=== PATIENT | female | born 2000 | race Caucasian/White ===

== ENCOUNTER → 2022-03-18 08:01 | Outpatient (CLI) | payer BC, SELFPAY ==
--- NOTE | ~2022-03-18 | US_ITS ---
EXAMINATION: US thyroid DATE: 03/18/2022 08:26 INDICATION: Nontoxic goiter. TECHNIQUE: Multiple ultrasound images of the thyroid were obtained. COMPARISON: None. FINDINGS: The right thyroid lobe measures 4.5 x 1.3 x 1.6 cm. The left thyroid lobe measures 4.6 x 1.0 x 1.6 c m. The thyroid demonstrates heterogeneous hypoechogenicity and increased vascularity. In the left th yroid lobe, there is a 7 mm solid, hypoechoic, [id number]-menk nodule with ill-defined margin without echogenic foci (TI-RADS TR4). IMPRESSION: 1. Heterogeneous, hypervascular thyroid, consistent with chronic lymphocytic (Santos) thyroiditis. 2. Small thyroid nodule, likely not clinically significant. No follow-up is needed. Reviewed, dictated and finalized at location A. IMPRESSION: 1. Heterogeneous, hypervascular thyroid, consistent with chronic lymphocytic (H ashimoto) thyroiditis. 2. Small thyroid nodule, likely not clinically significant. No follow-up is nee ded.
== END ==
PROVIDERS: PCP Family Medicine; Visit Provider Nurse Practitioner
DX: E04.9 Nontoxic goiter, unspecified (principal)
CPT/HCPCS: 76536

== ENCOUNTER 2022-04-08 14:13 | Outpatient (CLI) | payer BC, SELFPAY ==
--- NOTE | ~2022-04-08 | NM_ITS ---
EXAMINATION: NM thyroid scan w uptake DATE: 04/09/2022 15:13 INDICATION: Hyperthyroidism. Thyroid toxicosis without thyrotoxic crisis. COMPARISON: Thyroid ultrasound 03/18/2022 TECHNIQUE: 0.326 mCi I-123 was administered orally. Scintigraphic images of the thyroid gland were o btained at 24 hours. Thyroid uptake was calculated by the technologist. FINDINGS: The thyroid uptake is 33% (normal 10-30%), with the right lobe measuring 16% uptake and the left 18%. There is no focal area of decreased or increased activity to suggest hypofunctioning or hyperfunctio jevon nodule. IMPRESSION: 1. Mildly increased 24-hour iodine uptake, consistent with hyperthyroidism. Reviewed, dictated and finalized at location A.
== END 2022-04-08 14:14 | disposition home or self-care (01) ==
PROVIDERS: PCP Family Medicine; Visit Provider Nurse Practitioner
DX: E05.90 Thyrotoxicosis, unspecified without thyrotoxic crisis or storm (principal)
CPT/HCPCS: 78014; A9516

== ENCOUNTER 2022-11-10 00:18 | Day surgery (SDC) | payer BC, SELFPAY ==
[2022-10-06 10:03] VITALS: BMI 31.3
[2022-11-10 09:17] VITALS: BP 126/77; PULSE 117; RESP 16; TEMP 36.6; O2SAT 98
[2022-11-10] MEDS: LACTATED RINGERS 1,000 ML 150 ML IV CONT (09:19)
--- NOTE | 2022-11-10 09:27 | WPDANESEPPF ---
Anes - Initial Pre Proc Eval Procedure: Operation Date: 11/10/22 10:30 Proposed Procedures p Esophagogastroduodenoscopy & Colonoscopy - Anshu Linton MD Date/Time: 11/10/22 09:27 Surgeon: Anshu Linton MD Pre Op Diagnosis: diarrhea, globus phenomenon Patient Data Age: 22 Gender: F Height: 1.7 m Weight: 89.2 kg Last Vital Signs Temp 36.6 C 11/10/22 09:17 Pulse 117 H 11/10/22 09:17 Resp 16 11/10/22 09:17 BP 126/77 11/10/22 09:17 Pulse Ox 98 11/10/22 09:17 O2 Del Method Room Air 11/10/22 09:17 Allergies Allergy/AdvReac Type Severity Reaction Status Date / Time No Known Allergies Allergy Verified 11/10/22 09:15 Home Medications Medication Instructions Recorded Confirmed Type cholecalciferol (vitamin D3) 250 250 mcg PO DAILY 09/24/22 11/10/22 History mcg (10,000 unit) capsule cholestyramine (with sugar) 4 gram 4 g PO DAILY #378 grams 09/24/22 11/10/22 Rx oral powder (Questran) methimazole 5 mg tablet 5 mg PO DAILY 09/24/22 11/10/22 History metoprolol succinate 25 mg capsule 25 mg PO DAILY 09/24/22 11/10/22 History sprinkle, ext. release 24 hr phentermine 37.5 mg capsule 37.5 mg PO DAILY 09/24/22 11/10/22 History rifaximin 550 mg tablet (Xifaxan) 550 mg PO TID 2 weeks #42 tabs 09/24/22 11/10/22 Rx citalopram 20 mg tablet (Celexa) 20 mg PO DAILY 11/01/22 11/10/22 History Patient hx anesthesia problems: none Family hx anesthesia problems: post op nausea/vomiting Results Review: All pre-operative results and documents have been reviewed as part of the pre-operative evaluation. [facility] Past Medical History Medical History Abdominal bloating Anxiety Diarrhea Hypertension Migraine Thyroid disorder Social History Social History Smoking status: Never smoker Drinks per week: 2 Substance use type: does not use Living arrangements: with family Spiritual care concerns: No Anes - Eval Final PreProcedure Day of Procedure 11/10/22 09:27 Patient weight: obese Heart: regular rate and rhythm Lungs: clear to auscultation Airway: Mallampati scale class II Neurological: alert and oriented Last oral intake: >/= 8 hours ASA classification: III Emergent: no Anesthetic plan: proceed Anesthesia type and monitoring: general GIVS and standard monitoring Results Review: All pre-operative results and documents have been reviewed as part of the pre-operative evaluation. Informed Consent: The patient's anesthetic plan and its attendant risks and benefits were discussed with the patient/family/POA. Questions were solicited and answers provided to the satisfaction of the patient/family/POA.
--- NOTE | 2022-11-10 09:50 | PM.HPGS ---
History of Present Illness History of Present Illness Consent: Risks, benefits, and alternatives have been discussed and questions answered. Patient agrees to proceed with procedure. Chief complaint: diarrhea, globus phenomenon Narrative: Aydee Blankenship is a 22 year old female with chronic diarrhea, bloating and also globus sensation, never had scopes Review of Systems Constitutional: Constitutional: Denies headache(s) and Denies weakness Eyes: Eyes: Denies blurry vision ENT: Reports Normal hearing present, Denies headache(s) and Denies neck pain Cardiovascular: Cardiovascular: Denies chest pain and Denies dyspnea Respiratory: Respiratory: Denies dyspnea Gastrointestinal: Gastrointestinal: Reports no additional gastrointestinal complaints Genitourinary: Genitourinary: Denies dysuria Musculoskeletal: Musculoskeletal: Denies neck pain Integumentary/Breasts: Skin/Breast: Denies dry skin Neurologic: Reports Normal hearing present, Denies headache(s) and Denies weakness Psychiatric: Psychiatric: Denies anxiety Endocrine: Endocrine: Denies change in body appearance Hematologic/Lymphatic: Hematologic/Lymphatic: Denies easy bleeding Allergic/Immunologic: Allergic/Immunologic: Denies urticaria PMFSH Past Medical History Medical History Abdominal bloating Anxiety Diarrhea Hypertension Migraine Thyroid disorder Social History Social History Smoking status: Never smoker Drinks per week: 2 Substance use type: does not use Living arrangements: with family Spiritual care concerns: No Meds Home Medications and Allergies Home Medications Medication Instructions Recorded Confirmed Type cholecalciferol (vitamin D3) 250 250 mcg PO DAILY 09/24/22 11/10/22 History mcg (10,000 unit) capsule cholestyramine (with sugar) 4 gram 4 g PO DAILY #378 grams 09/24/22 11/10/22 Rx oral powder (Questran) methimazole 5 mg tablet 5 mg PO DAILY 09/24/22 11/10/22 History metoprolol succinate 25 mg capsule 25 mg PO DAILY 09/24/22 11/10/22 History sprinkle, ext. release 24 hr phentermine 37.5 mg capsule 37.5 mg PO DAILY 09/24/22 11/10/22 History rifaximin 550 mg tablet (Xifaxan) 550 mg PO TID 2 weeks #42 tabs 09/24/22 11/10/22 Rx citalopram 20 mg tablet (Celexa) 20 mg PO DAILY 11/01/22 11/10/22 History Allergies Allergy/AdvReac Type Severity Reaction Status Date / Time No Known Allergies Allergy Verified 11/10/22 09:15 Vital Signs Vital Signs - 24 hr 11/10/22 09:17 Temperature 97.9 F Pulse Rate 117 H Respiratory Rate 16 Blood Pressure 126/77 Pulse Oximetry 98 Oxygen Delivery Room Air Exam Const: General: comfortable and no acute distress HENMT: Face/Nose/Sinus: Normal nares present Eyes: General: appearance normal, both eyes and all related structures Neck: Neck: no JVD Resp: Auscultation: clear to auscultation bilaterally Cardio: Rate: regular rate Rhythm: regular rhythm GI: Inspection: non-distended GI Palp: Yes Soft to palpation Skin: General skin exam: normal color Neuro: General: gait normal Speech: normal speech Extrem: General: normal to inspection Psych: Mental Status: mental status grossly normal Assessment and Plan Assessment and plan (1) Abdominal bloating: Code(s): R14.0 - Abdominal distension (gaseous) Status: Acute Assessment and Plan: egd with bx (2) Diarrhea: Code(s): R19.7 - Diarrhea, unspecified Status: Acute Assessment and Plan: colonoscopy with bx
[2022-11-10] MEDS: BENZOCAINE (*SP) 60 ML SPRAY CAN (HURRICAINE) 1 SPRAY MUCOUS MEM (09:55)
--- NOTE | 2022-11-10 10:08 | SUR.OPER ---
EGD ended at 957. Colonoscopy started at 1004.
[2022-11-10 10:15] VITALS: BP 116/73; PULSE 91; RESP 19; O2SAT 99
[2022-11-10 10:25] VITALS: BP 121/82; PULSE 80; RESP 17; O2SAT 100
[2022-11-10 10:35] VITALS: BP 127/85; PULSE 74; RESP 21; O2SAT 100
== END 2022-11-10 10:47 | disposition home or self-care (01) ==
PROVIDERS: PCP Family Medicine; Visit Provider Internal Medicine Gastroenterology
PROC: 0DJ08ZZ Inspection of Upper Intestinal Tract, Via Natural or Artificial Opening Endoscopic (ICD-10-PCS; CPT 43235; principal; 2022-11-10 10:30)
DX: R19.7 Diarrhea, unspecified (principal); K21.00 Gastro-esophageal reflux disease with esophagitis, without bleeding; I10 Essential (primary) hypertension; F41.9 Anxiety disorder, unspecified; E66.9 Obesity, unspecified; Z68.30 Body mass index [BMI] 30.0-30.9, adult
CPT/HCPCS: 45380; 43239; 88305; J2704; J7120

== ENCOUNTER 2023-11-25 10:57 | Outpatient (CLI) | payer BC, SELFPAY ==
--- NOTE | ~2023-11-25 | US_ITS ---
EXAMINATION: US thyroid DATE: 11/25/2023 11:37 INDICATION: Thyroid nodule TECHNIQUE: Multiple ultrasound images of the thyroid were obtained. COMPARISON: 03/18/2022 FINDINGS: The right thyroid lobe measures 4.9 x 1.3 x 1.6 cm. The left thyroid lobe measures 4.8 x 1.2 x 1.5 c m. There is heterogeneous echogenicity with coarsened echotexture throughout the thyroid. There is a 5 mm solid hypoechoic nodule with smooth margins and without echogenic foci (TI-RADS 4, moderately s uspicious , FNA if >=1.5 cm, annual followup is >=1 cm) in the deep left thyroid lobe. This appears s lightly decreased in size and with more well-defined margins and on the prior study. There is a secon d similar-appearing 5 mm nodule along the inferior margin of the left thyroid lobe but with thin plan e of increased echogenicity separate from the thyroid suggesting this could be extrathyroidal with di fferential including parathyroid adenoma. IMPRESSION: 1. Heterogeneous thyroid with coarsened echotexture which could be seen in the setting of Santos's thyroiditis. 2. Slight decrease in size of a now 5 mm left thyroid nodule which does not meet size criteria for ei ther biopsy or follow-up. 3. Second similar-appearing 5 mm nodule at the lower pole of the left thyroid, uncertain whether with in or peripheral to the thyroid and would also include parathyroid adenoma or normal small parathyroi d lymph node on the differential. Reviewed, dictated and finalized at location A. RITY SUPERVISOR IMPRESSION: 1. Heterogeneous thyroid with coarsened echotexture which could be seen in the setting of Santos's thyroiditis. 2. Slight decrease in size of a now 5 mm left thyroid nodule which does not jeana t size criteria for either biopsy or follow-up. 3. Second similar-appearing 5 mm nodule at the lower pole of the left thyroid, uncertain whether within or peripheral to the thyroid and would also include pa rathyroid adenoma or normal small parathyroid lymph node on the differential.
== END 2023-11-25 10:58 | disposition home or self-care (01) ==
LOC: ANHIMG 10:58
PROVIDERS: PCP Family Medicine; Visit Provider Internal Medicine
DX: E04.2 Nontoxic multinodular goiter (principal)
CPT/HCPCS: 76536

== ENCOUNTER 2024-12-25 21:07 | Emergency (ER) | payer BC, OTHER, SELFPAY ==
--- OUTSIDE RECORDS SUMMARY | 2024-12-25 21:09 | XMS_ITS | Clinical Summary ---
Author Organization [facility] Address [address] [place] [phone] Phone Care Team Providers Care Event Executive Name Role Phone Urmila Mckeon MD Primary Care Provider + Social History Tobacco Use Types Packs/Day Years Used Date Smoking Tobacco: Never Assessed Comments Unknown Sex and Gender Information Value Date Recorded Sex Assigned at Not on file Legal Sex Female 1:37 PM CDT Gender Identity Not on file Sexual Orientation Not on file Plan of Treatment Health Maintenance Due Date Last Done Comments HPV VACCINES (1 - 3-dose series) 2013 DTAP/TDAP/TD VACCINES (1 - Tdap) 2017 HEPATITIS B VACCINES (1 of 3 - 19+ 3-dose series) 2017 CERVICAL CANCER SCREENING 2019 INFLUENZA VACCINE (#1) 2024 PNEUMOCOCCAL VACCINE 0-64 YEARS Aged Out No longer eligible based on patient's age to complete this topic Care Teams Event Executive Relationship Specialty Start Date End Date Urmila Mckeon MD [address] [place] [phone] PCP - General Family Practice 09/01/22
[2024-12-25 21:13] VITALS: BP 129/74; PULSE 91; RESP 16; TEMP 36.6; O2SAT 101
[2024-12-25 23:31] VITALS: BP 138/77; PULSE 68; RESP 17; TEMP 36.8; O2SAT 100
--- OUTSIDE RECORDS SUMMARY | 2024-12-26 00:42 | XMS_ITS | Referral Summary ---
Author Organization [facility] Address [address] [place] [address] Care Team Providers Care Airline Transport Pilot Name Role Phone Noe Ornelas MD Primary Care Provider [phone] Encounters Date Type Department Care Team Description 11/16/2024 Telephone [facility] [address] [place] [phone] Roman Pily 11/15/2024 Orders Only [facility] [address] [place] [phone] Alok Corona MD Graves disease (Primary Dx) 11/15/2024 10:20 AM SENIOR ACCOUNTANT ANALYST Lab [facility] [address] [place] [address] [place] [address] Graves disease; Fatigue, unspecified type 11/15/2024 9:45 AM SENIOR ACCOUNTANT ANALYST Office Visit [facility] [address] [place] [phone] Alok Corona MD Graves disease (Primary Dx); Fatigue, unspecified type 10/29/2024 Telephone [facility] [address] [facility] [address] [facility] Room [address] (Third Floor) [place] [address] Leonor Wells, RN COVID-19 EVALUATION 10/26/2024 [facility] [address] [facility] [address] [facility] [place] [address] Noe Ornelas MD Lab Results (/) 10/24/2024 8:20 PM SENIOR ACCOUNTANT ANALYST Lab [facility] [address] [place] [address] Difficult or painful urination from Last 3 Months Allergies No known active allergies Medications citalopram (CeleXA) 20 mg tablet TAKE 1 TABLET BY MOUTH EVERY DAY 90 tablet 4 Active levothyroxine (SYNTHROID) 150 mcg tablet Take 1 tablet (150 mcg total) by mouth train director before breakfast 90 tablet 3 4 Active Active Problems Problem Noted Date Diagnosed Date Graves disease 05/16/2024 Assessment & Plan (11/15/2024 1:04 PM SENIOR ACCOUNTANT ANALYST): She is s/p REED nearly 3 months ago and feels fatigued. Methimazole was stopped 4 weeks ago. I suspect that she is now hypothyroid, which would be expected after radioactive iodine. Check TFT's today and start levothyroxine as indicated. We discussed that she should not get until at least 6 months after REED. We also discussed that thyroid eye disease can occur at any time, even after the Graves' has been treated. She has no signs of LUCIANO today. Assessment & Plan (07/16/2024 9:12 AM CDT): She has thyrotoxicosis due to Graves' disease given the elevated TSI levels and is symptomatic. We discussed treatments including medications, REED, and surgery. I think the best option for her would be REED given the frequent cessation and re- initiation of methimazole in the past and the fact that remission has not been sustained when off methimazole for any length of time. She would also like to become in the next year or so and methimazole cannot be used in the first trimester of . We will proceed with nuclear medicine consult for REED therapy. In the meantime, restart methimazole 5 mg daily given her symptoms; she will stop this 3 days prior to the scan. She denies being at this time but a POC test will be checked before REED. We discussed that we expect her to develop hypothyroidism after REED and she will likely need to begin thyroid hormone at some point. This can be safely taken in . She cannot get for six months following REED and she understands this. We also discussed that TSI antibodies would still have to be monitored during due to the risk of Graves' even s/p REED ablation. We will get baseline TFT's today before restarting treatment as above. Assessment & Plan (05/16/2024 10:34 AM CDT): By history. Will check old records. Check thyroid labs including TSI and TPO. May need referral to Endocrinology. Thyroid-binding globulin (TBG) abnormality 05/10 Assessment & Plan (05/10/2017 3:50 PM CDT): Repeat thyroid funtion If normal, no further studies would be needed Otherwise, advise to follow Immunizations Name Administration Dates Next Due DTaP, Unspecified 04/10/2003, 9,1998,10/21,1998 HPV, Quadrivalent 01/09/2013,09/08/2012,07/05/20 12 Hep A, Unspecified 02/27/2018,08/23/2017 Hep B, Unspecified 1998,1998, 998 HiB 10/08/1999, 9,1998,08/20 Influenza, Quadrivalent, Lorna l Culture-based MDCK, Preservative Free, Antibiotic Free, Intramuscular 09/05/2023 Influenza, Trivalent, IM (MDV) 08/25/2021 Influenza, Unspecified 08/23/2017 MMR 04/10/2003,07/10/1999 Meningococcal MCV4P (Menactra) 08/12/2015,2011 Polio, Unspecified 04/10/2003, 9,1998,08/20 Tdap 06/09/2009 Social History Tobacco Use Types Packs/Day Years Used Date Smoking Tobacco: Never Smokeless Tobacco: Never Tobacco Cessation:Counseling Given: No Alcohol Use Standard Drinks/Week Comments No 0 (1 standard drink = 0.6 oz pur e alcohol) Personal Safety Answer Date Recorded Have you ever been in or are you currently in a harmful physical or emotional relationship or is someone making you feel afraid or unsafe? Denies 08/23/2024 Comments No Sex and Gender Information Value Date Recorded Sex Assigned at Not on file Legal Sex Female 10:48 AM SENIOR ACCOUNTANT ANALYST Gender Identity Not on file Sexual Orientation Not on file Last Filed Vital Signs Vital Sign Reading Time Taken Comments Blood Pressure 113/79 11/15/2024 9:29 AM SENIOR ACCOUNTANT ANALYST Pulse 99 11/15/2024 9:29 AM SENIOR ACCOUNTANT ANALYST Temperature 36.6 ??C (97.9 ??F) 08/23/2024 6:25 PM CD T Respiratory Rate 16 08/23/2024 6:25 PM CDT Oxygen Saturation 98% 08/23/2024 6:25 PM CDT Inhaled Oxygen Concentration - - Weight 95.1 kg (209 lb 9.6 oz) 11/15/2024 9:29 A M SENIOR ACCOUNTANT ANALYST Height 167.6 cm (5' 6 ) 11/15/2024 9:29 AM SENIOR ACCOUNTANT ANALYST Body Mass Index 33.83 11/15/2024 9:29 AM SENIOR ACCOUNTANT ANALYST Plan of Treatment Not on file Procedures Procedure Name Priority Date/Time Associated Diagnosis Comments VITAMIN B12 Routine 11/15/2024 10:20 AM SENIOR ACCOUNTANT ANALYST Fatigue, unspecified type VITAMIN D 25 HYDROXY Routine 11/15/2024 10:20 AM SENIOR ACCOUNTANT ANALYST Fatigue, unspecified type FERRITIN Routine 11/15/2024 10:20 AM SENIOR ACCOUNTANT ANALYST Fatigue, unspecified type IRON PROFILE W/ IBC Routine 11/15/2024 1 0:20 AM SENIOR ACCOUNTANT ANALYST Fatigue, unspecified type T3, FREE Routine 11/15/2024 10:20 AM SENIOR ACCOUNTANT ANALYST Graves disease T4, FREE Routine 11/15/2024 10:20 AM SENIOR ACCOUNTANT ANALYST Graves disease TSH Routine 11/15/2024 10:20 AM SENIOR ACCOUNTANT ANALYST Graves disease URINALYSIS, MICROSCOPIC ONLY Routine 10/24/2024 3:57 PM SENIOR ACCOUNTANT ANALYST Difficult or painful urination URINALYSIS AND REFLEX TO MICROSCOPIC AND CULTURE Routine 10/24/2024 3:57 PM SENIOR ACCOUNTANT ANALYST Difficult or painful urination from Last 3 Months Results * Iron profile w/ IBC (11/15/2024 10:20 AM SENIOR ACCOUNTANT ANALYST) [facility] Iron 82 35 - 145 mcg/dL TIBC 305 250 - 400 mcg/dL [facility] Transferrin saturation 27 20 - 50 % [facility] Blood 11/15/2024 10:2 0 AM SENIOR ACCOUNTANT ANALYST 11/15/2024 10:43 AM SENIOR ACCOUNTANT ANALYST Alok Corona MD LAB BLOOD ORDERABLES Fi nal Result [facility] [place] [address] * (ABNORMAL) Vitamin D 25 hydroxy (11/15/2024 10:20 AM SENIOR ACCOUNTANT ANALYST) [facility] Vitamin D 25-OH 25(L) 30 - 80 ng/mL Blood 11/15/2024 10:2 0 AM SENIOR ACCOUNTANT ANALYST 11/15/2024 10:43 AM SENIOR ACCOUNTANT ANALYST Alok Corona MD LAB BLOOD ORDERABLES Fi nal Result [facility] [place] [address] * (ABNORMAL) T3, free (11/15/2024 10:20 AM SENIOR ACCOUNTANT ANALYST) [facility] Free T3 <0.4(L) 2.0 - 4.4 pg/mL Blood 11/15/2024 10:2 0 AM SENIOR ACCOUNTANT ANALYST 11/15/2024 10:43 AM SENIOR ACCOUNTANT ANALYST Alok Corona MD LAB BLOOD ORDERABLES Fi nal Result Performing Organization Address [facility] de Phone Number [facility] [place] [address] * (ABNORMAL) TSH (11/15/2024 10:20 AM SENIOR ACCOUNTANT ANALYST) Thyroid Stimulating Hormone 123.00(H) 0.30 - 4.20 mcIUnit/m L Blood 11/15/2024 10:2 0 AM SENIOR ACCOUNTANT ANALYST 11/15/2024 10:43 AM SENIOR ACCOUNTANT ANALYST Alok Corona MD LAB BLOOD ORDERABLES Fi nal Result Performing Organization Address [facility] de Phone Number [facility] [place] [address] * (ABNORMAL) T4, free (11/15/2024 10:20 AM SENIOR ACCOUNTANT ANALYST) Free T4 <0.10(L) 0.90 - 1.70 ng/dL Blood 11/15/2024 10:2 0 AM SENIOR ACCOUNTANT ANALYST 11/15/2024 10:43 AM SENIOR ACCOUNTANT ANALYST Alok Corona MD LAB BLOOD ORDERABLES Fi nal Result Performing Organization Address [facility] de Phone Number [facility] [place] [address] * Ferritin (11/15/2024 10:20 AM SENIOR ACCOUNTANT ANALYST) Ferritin 59 13 - 150 ng/mL Blood 11/15/2024 10:2 0 AM SENIOR ACCOUNTANT ANALYST 11/15/2024 10:43 AM SENIOR ACCOUNTANT ANALYST Alok Corona MD LAB BLOOD ORDERABLES Fi nal Result [facility] [place] [address] * Vitamin B12 (11/15/2024 10:20 AM SENIOR ACCOUNTANT ANALYST) Vitamin B12 637 230 - 1,250 pg/mL Blood 11/15/2024 10:2 0 AM SENIOR ACCOUNTANT ANALYST 11/15/2024 10:43 AM SENIOR ACCOUNTANT ANALYST us Alok Corona MD LAB BLOOD ORDERABLES Fi nal Result Performing Organization Address [facility] Co de Phone Number [facility] [place] [address] * (ABNORMAL) Urinalysis reflex to microscopic and culture Urine (10/24/2024 3:57 PM SENIOR ACCOUNTANT ANALYST) Color, ur Yellow Yellow Clarity, ur Clear Clear [facility] Specific gravity, ur 1.036(H) 1.003 - 1.030 [facility] pH, urine 7.0 [facility] Comment: Interpretive Data ? Urine pH is affected by diet, medications, systemic acid-base disturbances, and renal tubular function. ??pH may affect urinary stone formation. ??For example, urine pH below 6.0 may help reduce the tendency for calcium phosphate stones and pH greater than 6.0 may reduce the tendency for uric acid stone formation. Source: [facility] [place] Current Interpretive Data was last revised on 2017 Protein, ur ql 1+(A) Negative [facility] Glucose, ur ql Negative Negative [facility] Ketones, ur Negative Negative [facility] Bilirubin, ur Negative Negative [facility] Blood, ur Negative Negative [facility] Urobilinogen, ur <2.0 <2.0 mg/dL [facility] Nitrite, ur Negative Negative [facility] Leukocyte esterase, ur Negative Negative [facility] UA reflex comment Reflex to microscopic UA will be performed. [facility] Urine 10/24/2024 3:57 PM SENIOR ACCOUNTANT ANALYST 10/24/2024 4:00 PM SENIOR ACCOUNTANT ANALYST Noe Ornelas MD LAB MICROBIOLOGY - GENERAL OR DERABLES Final Result Performing Organization Address [facility]/ZIP Co de Phone Number [facility] [place] [address] * (ABNORMAL) Urinalysis, microscopic only (10/24/2024 3:57 PM SENIOR ACCOUNTANT ANALYST) WBC, ur 0-5 0 - 5 /HPF RBC, ur 3-5(A) 0 - 2 /HPF [facility] Epithelial cells, squamous, ur 1-5 0 - 5 /HPF [facility] Epithelial cells, renal, ur 1-5(A) 0 - 0 /HPF [facility] Epithelial cells, transitional, ur 1-5 0 - 0 /HPF [facility] Bacteria, ur Trace(A) [facility] Mucous, ur Present(A) [facility] Culture Reflex Comment Reflex conditions for urine culture (WBC >10) not met. [facility] Urine 10/24/2024 3:57 PM SENIOR ACCOUNTANT ANALYST 10/24/2024 4:00 PM SENIOR ACCOUNTANT ANALYST Noe Ornelas MD LAB URINE ORDERABLES Final Re sult Performing Organization Address [facility] Co de Phone Number ZENON SHEIKH [facility] [place] [address] from Last 3 Months Insurance [facility] CHOICE PLUS CIGNA CIGNA CIGNA Care Teams Airline Transport Pilot Relationship Specialty Start Date End Date Noe Ornelas MD [address] [address] PCP - General Internal Medicine 05/16/24
--- OUTSIDE RECORDS SUMMARY | 2024-12-26 00:42 | XMS_ITS | Clinical Summary ---
Author Organization [facility] Address [address] [place] [phone] Phone Care Team Providers Care Stationary Engineer Name Role Phone Urmila Mckeon MD Primary [...] age to complete this topic Care Teams Stationary Engineer Relationship Specialty Start Date End Date Urmila Mckeon MD [address] [place] [phone] PCP - General Family Practice 09/01/22
--- OUTSIDE RECORDS SUMMARY | 2024-12-26 00:42 | XMS_ITS | Clinical Summary ---
Author Organization [facility] [address] [facility] [place] Address [address] [place] [address] Care Team Providers Care Event Specialist Food Demonstrator Name Role Phone Noe Ornelas MD Primary Care Provider [phone] Allergies No known active allergies Medications citalopram (CeleXA) 20 mg tablet TAKE 1 TABLET BY MOUTH EVERY DAY 90 tablet 4 Active levothyroxine (SYNTHROID) 150 mcg tablet Take 1 tablet (150 mcg total) by mouth surgical technologist before breakfast 90 tablet 3 4 Active Active Problems Problem Noted Date Diagnosed Date Graves disease 05/16/2024 Assessment & Plan (11/15/2024 1:04 PM NURSE ADVISOR): She is s/p REED nearly 3 months [...] would be needed Otherwise, advise to follow Encounters Date Type Department Care Team Description 11/16/2024 Telephone [facility] [address] [place] [phone] Pily Owens 11/15/2024 10:20 AM NURSE ADVISOR Lab [facility] [address] [place] [address] Outpatient Health [place], [place] [id number] Graves disease; Fatigue, unspecified type 11/15/2024 9:45 AM NURSE ADVISOR Office Visit [facility] [address] [place] [address] Alok Corona MD Graves disease (Primary Dx); Fatigue, unspecified type 11/15/2024 Orders Only [facility] [address] [place] [address] [address] [place] [phone] Alok Corona MD Graves disease (Primary Dx) 10/29/2024 Telephone [facility]ly [facility] Room [address] (Third Floor) [place] [address] Leonor Wells, RN COVID-19 EVALUATION 10/26/2024 Telephone [facility] [address] [place] [address] [address] [place] [phone] Noe Ornelas MD Lab Results (/) 10/24/2024 8:20 PM NURSE ADVISOR Lab [facility] [address] [place], [place] [phone] Difficult or painful urination from Last 3 Months Immunizations Name Administration Dates Next Due DTaP, Unspecified 04/10/2003, 9,1998,10/21,1998 HPV, Quadrivalent 01/09/2013,09/08/2012,07/05/20 12 Hep A, Unspecified 02/27/2018,08/23/2017 Hep B, Unspecified 1998,1998, 998 HiB 10/08/1999, 9,1998,08/20 Influenza, Quadrivalent, Lorna l Culture-based MDCK, Preservative Free, Antibiotic Free, Intramuscular 09/05/2023 Influenza, Trivalent, IM (MDV) 08/25/2021 Influenza, Unspecified 08/23/2017 MMR 04/10/2003,07/10/1999 Meningococcal MCV4P (Menactra) 08/12/2015,2011 Polio, Unspecified 04/10/2003, 9,1998,08/20 Tdap 06/09/2009 Medical History Medical History Date Comments Hx Other Medical hypothyroid; Co mments: GFC 01/13/2017 - Depression Anxiety Thyroid disease Hypertension Inflammatory bowel disease Family History Medical History Relation Name Comments Thyroid disease Father Hypertension Maternal Grandfather Hyperte nsion; Hypertension Mother Obesity Mother Lung cancer Paternal Grandfather Cancer, lung; Cause of : Cancer, lung Relation Name Status Comments Father Maternal Grandfather Mother Paternal Grandfather Social History Tobacco Use Types Packs/Day Years [...] on file Legal Sex Female 10:48 AM NURSE ADVISOR Gender Identity Not on file Sexual Orientation Not on file Obstetrics History Last Filed Vital Signs Vital Sign Reading Time Taken Comments Blood Pressure 113/79 11/15/2024 9:29 AM NURSE ADVISOR Pulse 99 11/15/2024 9:29 AM NURSE ADVISOR Temperature 36.6 ??C (97.9 ??F) 08/23/2024 6:25 PM CD T Respiratory Rate 16 08/23/2024 6:25 PM CDT Oxygen Saturation 98% 08/23/2024 6:25 PM CDT Inhaled Oxygen Concentration - - Weight 95.1 kg (209 lb 9.6 oz) 11/15/2024 9:29 A M NURSE ADVISOR Height 167.6 cm (5' 6 ) 11/15/2024 9:29 AM NURSE ADVISOR Body Mass Index 33.83 11/15/2024 9:29 AM NURSE ADVISOR Plan of Treatment Health Maintenance Due Date Last Done Comments Cervical Cancer Screening 1998 Hepatitis C Screening 1998 Varicella Vaccines (1 of 2 - 13+ 2-dose series) 2011 Regular Well Visit/Exam 18-64 2016 Depression Screening 05/10/2018 05/10/2017 DTaP/Tdap/Td Vaccine (7 - Td or Tdap) 06/09/2019 06/09/2009, 04/10/2003, 10/08/1999, Additional history exists Covid-19 Vaccine ( season) 2024 02/05/2022, 12/26/2020, 12/05/2020 Influenza Vaccine (#1) 2024 3, 08/25/2021, 08/23/2017 HPV Vaccines Completed 01/09/2013, 08/21, 07/05/2012 Pneumococcal vaccine <65 Aged Out No longer eligible based on patient's age to complete this topic Procedures Procedure Name Priority Date/Time Associated Diagnosis Comments VITAMIN B12 Routine 11/15/2024 10:20 AM NURSE ADVISOR Fatigue, unspecified type VITAMIN D 25 HYDROXY Routine 11/15/2024 10:20 AM NURSE ADVISOR Fatigue, unspecified type FERRITIN Routine 11/15/2024 10:20 AM NURSE ADVISOR Fatigue, unspecified type IRON PROFILE W/ IBC Routine 11/15/2024 1 0:20 AM NURSE ADVISOR Fatigue, unspecified type T3, FREE Routine 11/15/2024 10:20 AM NURSE ADVISOR Graves disease T4, FREE Routine 11/15/2024 10:20 AM NURSE ADVISOR Graves disease TSH Routine 11/15/2024 10:20 AM NURSE ADVISOR Graves disease URINALYSIS, MICROSCOPIC ONLY Routine 10/24/2024 3:57 PM NURSE ADVISOR Difficult or painful urination URINALYSIS AND REFLEX TO MICROSCOPIC AND CULTURE Routine 10/24/2024 3:57 PM NURSE ADVISOR Difficult or painful urination from Last 3 Months Results * Iron profile w/ IBC (11/15/2024 10:20 AM NURSE ADVISOR) Iron 82 35 - 145 mcg/dL TIBC 305 250 - 400 mcg/dL [facility] Transferrin saturation 27 20 - 50 % [facility] Blood 11/15/2024 10:2 0 AM NURSE ADVISOR 11/15/2024 10:43 AM NURSE ADVISOR Alok Corona MD LAB BLOOD ORDERABLES Fi nal Result Performing Organization Address City/[facility] [place] [address] * (ABNORMAL) Vitamin D 25 hydroxy (11/15/2024 10:20 AM NURSE ADVISOR) Vitamin D 25-OH 25(L) 30 - 80 ng/mL Blood 11/15/2024 10:2 0 AM NURSE ADVISOR 11/15/2024 10:43 AM NURSE ADVISOR Alok Corona MD LAB BLOOD ORDERABLES Fi nal Result Performing Organization Address [facility] [place] [address] * (ABNORMAL) T3, free (11/15/2024 10:20 AM NURSE ADVISOR) Free T3 <0.4(L) 2.0 - 4.4 pg/mL Blood 11/15/2024 10:2 0 AM NURSE ADVISOR 11/15/2024 10:43 AM NURSE ADVISOR Alok Corona MD LAB BLOOD ORDERABLES Fi nal Result Performing Organization Address [facility] de Phone Number [facility] [place] [address] * (ABNORMAL) TSH (11/15/2024 10:20 AM NURSE ADVISOR) Thyroid Stimulating Hormone 123.00(H) 0.30 - 4.20 mcIUnit/m L Blood 11/15/2024 10:2 0 AM NURSE ADVISOR 11/15/2024 10:43 AM NURSE ADVISOR Alok Corona MD LAB BLOOD ORDERABLES Fi nal Result Performing Organization Address [facility] [place] [address] * (ABNORMAL) T4, free (11/15/2024 10:20 AM NURSE ADVISOR) Free T4 <0.10(L) 0.90 - 1.70 ng/dL Blood 11/15/2024 10:2 0 AM NURSE ADVISOR 11/15/2024 10:43 AM NURSE ADVISOR Alok Corona MD LAB BLOOD ORDERABLES Fi nal Result Performing Organization Address [facility] [place] [address] * Ferritin (11/15/2024 10:20 AM NURSE ADVISOR) Pathologist [facility] Ferritin 59 13 - 150 ng/mL Blood 11/15/2024 10:2 0 AM NURSE ADVISOR 11/15/2024 10:43 AM NURSE ADVISOR Alok Corona MD LAB BLOOD ORDERABLES Fi nal Result Performing Organization Address [facility] de Phone Number [facility] [place] [address] * Vitamin B12 (11/15/2024 10:20 AM NURSE ADVISOR) Vitamin B12 637 230 - 1,250 pg/mL Blood 11/15/2024 10:2 0 AM NURSE ADVISOR 11/15/2024 10:43 AM NURSE ADVISOR Alok Corona MD LAB BLOOD ORDERABLES Fi nal Result Performing Organization Address City/[facility] Co de Phone Number [facility] Department of Laboratories [place], [place] [phone] * (ABNORMAL) Urinalysis reflex to microscopic and culture Urine (10/24/2024 3:57 PM NURSE ADVISOR) Color, ur Yellow Yellow Clarity, ur Clear Clear [facility] Specific gravity, ur 1.036(H) 1.003 - 1.030 [facility] pH, urine 7.0 [facility] Comment: Interpretive Data ? Urine pH is affected by diet, medications, systemic acid-base disturbances, and renal tubular function. ??pH may affect urinary stone formation. ??For example, urine pH below 6.0 may help reduce the tendency for calcium phosphate stones and pH greater than 6.0 may reduce the tendency for uric acid stone formation. Source: [facility] Current Interpretive Data was last revised on 2017 Protein, ur ql 1+(A) Negative [facility] Glucose, ur ql Negative Negative [facility] Ketones, ur Negative Negative [facility] Bilirubin, ur Negative Negative [facility] Blood, ur Negative Negative [facility] Urobilinogen, ur <2.0 <2.0 mg/dL [facility] Nitrite, ur Negative Negative [facility] Leukocyte esterase, ur Negative Negative [facility] UA reflex comment Reflex to microscopic UA will be performed. [facility] Urine 10/24/2024 3:57 PM NURSE ADVISOR 10/24/2024 4:00 PM NURSE ADVISOR us Noe Ornelas MD LAB MICROBIOLOGY - GENERAL OR DERABLES Final Result [facility] [place] [address] * (ABNORMAL) Urinalysis, microscopic only (10/24/2024 3:57 PM NURSE ADVISOR) WBC, ur 0-5 0 - 5 /HPF RBC, ur 3-5(A) 0 - 2 /HPF [facility] Epithelial cells, squamous, ur 1-5 0 - 5 /HPF [facility] Epithelial cells, renal, ur 1-5(A) 0 - 0 /HPF [facility] Epithelial cells, transitional, ur 1-5 0 - 0 /HPF [facility] Bacteria, ur Trace(A) [facility] Mucous, ur Present(A) [facility] Culture Reflex Comment Reflex conditions for urine culture (WBC >10) not met. [facility] Urine 10/24/2024 3:57 PM NURSE ADVISOR 10/24/2024 4:00 PM NURSE ADVISOR us Noe Ornelas MD LAB URINE ORDERABLES Final Re sult [facility] [place] [address] from Last 3 Months Insurance [facility] CHOICE PLUS [employer] [facility] [employer] Address: [employer] [address] [place] [address] [facility] Care Teams Event Specialist Food Demonstrator Relationship Specialty Start Date End Date Noe Ornelas MD [address] [address] PCP - General Internal Medicine 05/16/24
--- NOTE | 2024-12-26 01:08 | ED.SKABFB ---
HPI - Skin/Abscess/Foreign Bdy General Chief complaint: Skin/Abscess/Foreign Body Stated complaint: CUT ON R INDEX FINGER Time Seen by Provider: 12/26/24 00:31 Source: patient Mode of arrival: ambulatory Limitations: no limitations History of Present Illness HPI narrative: Patient is a 24-year-old female who presents the ED with report of a laceration to her right 2nd digit. Patient reports she accidentally cut herself with a steak knife tonight. Sustained a superficial laceration to the radial edge of her distal right 2nd digit. Attempted to use [id number] skin glue at home but states with no states close. Prompted here for further evaluation. No numbness. Tetanus up-to-date. Related Data Home Medications ?Medication ?Instructions ?Recorded ?Confirmed ?Last Taken ?Type citalopram 20 mg tablet (Celexa) 20 mg PO DAILY 11/01/22 12/25/24 12/25/24 History Allergies Allergy/AdvReac Type Severity Reaction Status Date / Time No Known Allergies Allergy Verified 12/25/24 23:32 Review of Systems Review of Systems: All systems reviewed & are unremarkable except as noted in HPI. All systems reviewed & are unremarkable except as noted in HPI and below PMFSH Past Medical History Medical History GERD with esophagitis Irritable bowel syndrome with diarrhea Abdominal bloating Diarrhea Thyroid disorder Hypertension Migraine Anxiety Family History Family History Other No problems noted. Unknown Hypothyroidism Social History Social History Smoking status: Never smoker Drinks per week: 2 Substance use type: does not use Do You Feel Safe in your Home?: Yes Lack of Transportation: No Lack of Food: Never True Current Housing: I Have Housing Concerned About Future Housing: No Difficulty Paying Gas/Electric Bills: No Difficulty Paying for Meds: No Currently Unemployed: No Education: Associate Degree Difficulty w/ Childcare or Family Care: No Living arrangements: with family Spiritual care concerns: No Exam Narrative: GENERAL: Well appearing, well-nourished, non-toxic, in no acute distress. HEAD: Normocephalic, atraumatic. RESPIRATORY: Airway patent, respirations nonlabored. CARDIOVASCULAR: Regular rate and rhythm. MUSCULOSKELETAL: Moves all extremities. No gross deformities. 0.5cm linear superficial laceration to lateral edge of dip joint of R 2nd digit. Approximates well. No active bleeding. Sensation intact. Capillary refill intact. SKIN: Warm, dry, normal color. NEURO: A&O X3. Speech clear. PSYCHIATRIC: Appropriate mood and affect. Normal interaction. Course Vital Signs Vital signs: Vital Signs Temperature 97.9 F 12/25/24 21:13 Pulse Rate 91 12/25/24 21:13 Respiratory Rate 16 12/25/24 21:13 Blood Pressure 129/74 12/25/24 21:13 Pulse Oximetry 101 H 12/25/24 21:13 Oxygen Delivery Room Air 12/25/24 21:13 Temperature 98.3 F 12/25/24 23:31 Pulse Rate 68 12/25/24 23:31 Respiratory Rate 17 12/25/24 23:31 Blood Pressure 138/77 12/25/24 23:31 Pulse Oximetry 100 12/25/24 23:31 Oxygen Delivery Room Air 12/25/24 21:13 Procedures Laceration Laceration 1: Date: 12/26/24 Time: 01:00 Site: hand Side (If applicable): right (2nd digit) Size (cm): 0.5 Description: linear Depth: simple, single layer (superficial) Local Anesthetic: none Pre-repair: wound explored and irrigated ====== Skin Level ====== Skin layer closed with: dermabond ====== Subcutaneous Layer ====== ====== Muscle Layer ====== ====== Tendon Layer ====== MDM - Skin/Abscess/Foreign Bdy MDM Narrative Medical decision making narrative: Superficial laceration. Repaired with Dermabond. Tetanus up-to-date. Discharged home. Medical Records Attestation: I reviewed the patient's medical records. Discharge Plan Discharge Clinical Impression: Superficial laceration of finger Patient Disposition: Home, Self-Care Condition: Stable Instructions: Antibiotic Form, Finger Laceration (ED), Skin Adhesive Care (ED) Additional Instructions: Allow skin glue to fall off on its own. Utilize Tylenol/ibuprofen as needed for pain. Follow-up with your primary care doctor for further evaluation if needed. Patient Language: Tajik Prescriptions: No Action citalopram [Celexa] 20 mg Tablet 20 mg PO DAILY Follow-up/Referrals: Linda,Urmila Adler MD [Primary Care Provider] - Time of Disposition: 01:12
[2024-12-26] MEDS: ACETAMINOPHEN 500 MG TABLET 1000 MG PO (01:15)
== END 2024-12-26 01:18 | disposition home or self-care (01) ==
PROVIDERS: Emergency Provider Physician Assistant; PCP Family Medicine
DX: S61.210A Laceration without foreign body of right index finger without damage to nail, initial encounter (principal); K21.9 Gastro-esophageal reflux disease without esophagitis; I10 Essential (primary) hypertension; F41.9 Anxiety disorder, unspecified; W26.0XXA Contact with knife, initial encounter
CPT/HCPCS: 12001; 99282; A9270

== ENCOUNTER 2025-07-08 18:02 | Observation (INO) | payer OTHER, SELFPAY ==
[2025-07-08] VITALS (31 sets, daily range): BP systolic 111–130; BP diastolic 61–75; PULSE 71–104; O2SAT 99–100
--- OUTSIDE RECORDS SUMMARY | 2025-07-08 18:54 | XMS_ITS | Clinical Summary ---
Author Organization [facility] [address] [facility] [place] Address [address] [place] [address] Care Team Providers Care Web Operations Manager Name Role Phone Noe Ornelas MD Primary Care Provider [phone] Allergies No known active allergies Medications citalopram (CeleXA) 20 mg tablet TAKE 1 TABLET BY MOUTH EVERY DAY 90 tablet 3 02/07/2025 Active levothyroxine (SYNTHROID) 150 mcg tablet 150 mcg eight pills per week (one pill daily Tuesday through Tuesday and 2 pills on Sundays). 108 tablet 3 04/25/2025 Active Active Problems Problem Noted Date Diagnosed Date Postablative hypothyroidism 04/25/2025 Assessment & Plan (04/25/2025 11:24 AM CDT): She appears clinically euthyroid today. We discussed that our goal TSH in is approximately 0.2-2.5. Last TSH was at goal. We will assess her TFT's today and adjust the thyroid hormone dose accordingly. She will need at least one more TFT check in the 3rd trimester. , the levothyroxine dose can go back to the prepartum dose, at least initially. We also discussed the rare possibility of Graves' from passage of the TSI through the placenta. We will therefore assess TSI levels today. Graves disease 05/16/2024 Assessment & Plan (11/15/2024 1:04 PM SUPPORT ASSISTANT): She is s/p REED nearly 3 months [...] is symptomatic. We discussed treatments including medications, REDE, and surgery. I think the best option [...] Encounters Date Type Department Care Team Description 07/03/2025 1:45 PM CDT Lab [facility] [address] [facility] [place] [address] Graves disease; Postablative hypothyroidism 07/03/2025 Results Follow-Up [facility] [address] [place] [phone] Alok Corona MD T3, free, T4, free, TSH 04/26/2025 Telephone [facility] [address] [place] [phone] Alok Corona MD labs 04/25/2025 2:51 PM CDT - 04/25/2025 11:59 PM CDT Hospital Encounter [facility] [address] [place] [address] Postablative hypothyroidism; Graves disease Discharge Disposition: Discharge to home or self care 04/25/2025 9:30 AM CDT Office Visit [facility] [address] [place] [phone] Alok Corona MD Postablative hypothyroidism (Primary Dx); Graves disease 04/25/2025 Orders Only [facility] [address] [place] [phone] Alok Corona MD 04/25/2025 Results Follow-Up [facility] [address] [place] [phone] Alok Corona MD TSH, T4, free from Last 3 Months Immunizations Immunization Administration Dates Next Due DTaP, Unspecified 04/10/2003, [...] on file Legal Sex Female 10:48 AM SUPPORT ASSISTANT Gender Identity Not on file Sexual Orientation Not on file Obstetrics History Last Filed Vital Signs Vital Sign Reading Time Taken Comments Blood Pressure 124/82 04/25/2025 9:32 AM CDT Pulse 92 04/25/2025 9:32 AM CDT Temperature 37.4 C (99.3 F) 01/11/2025 9:56 AM SUPPORT ASSISTANT Respiratory Rate 16 08/23/2024 6:25 PM CDT Oxygen Saturation 98% 01/11/2025 9:56 AM SUPPORT ASSISTANT Inhaled Oxygen Concentration - - Weight 94.8 kg (208 lb 14.4 oz) 04/25/2025 9:32 AM CDT Height 167.6 cm (5' 6) 04/25/2025 9:32 AM CDT Body Mass Index 33.72 04/25/2025 9:32 AM CDT Plan of Treatment Health Maintenance Due Date Last Done Comments Cervical Cancer Screening 1998 Hepatitis C Screening 1998 Varicella Vaccines (1 of 2 - 13+ 2-dose series) 2011 Regular Well Visit/Exam 18-64 2016 Depression Screening 05/10/2018 05/10/2017 DTaP/Tdap/Td Vaccine (7 - Td or Tdap) 06/09/2019 06/09/2009, 04/10/2003, 10/08/1999, Additional history exists Covid-19 Vaccine ( season) 2024 02/05/2022, 12/26/2020, 12/05/2020 Influenza Vaccine (#1) 2025 3, 08/25/2021, 08/23/2017 Hepatitis B Screening Completed 1998 , 1998, 1998 HPV Vaccines Completed 01/09/2013, 08/21, 07/05/2012 Pneumococcal vaccine <65 Aged Out No longer eligible based on patient's age to complete this topic Procedures Procedure Name Priority Date/Time Associated Diagnosis Comments TSH Routine 07/03/2025 1:54 PM CDT Postablative hypothyroidism Graves disease T4, FREE Routine 07/03/2025 1:54 PM CDT Postablative hypothyroidism Graves disease T3, FREE Routine 07/03/2025 1:54 PM CDT Graves disease T4, FREE Routine 04/25/2025 9:52 AM CDT Postablative hypothyroidism Graves disease TSH Routine 04/25/2025 9:52 AM CDT Postablative hypothyroidism Graves disease from Last 3 Months Results * T3, free (07/03/2025 1:54 PM CDT) Free T3 2.3 2.0 - 4.4 pg/mL Blood 07/03/2025 1:54 PM CDT 07/03/2025 2:33 PM CDT Alok Corona MD LAB BLOOD ORDERABLES Fi nal Result Performing Organization Address City[facility] Co de Phone Number [facility] [employer] [place] [address] * TSH (07/03/2025 1:54 PM CDT) Pathologist [facility] Thyroid Stimulating Hormone 1.32 0.30 - 4.20 mcIUnit/mL Blood 07/03/2025 1:54 PM CDT 07/03/2025 2:33 PM CDT Alok Corona MD LAB BLOOD ORDERABLES Fi nal Result Performing Organization Address [facility] de Phone Number [facility] [place] [place] [address] * (ABNORMAL) T4, free (07/03/2025 1:54 PM CDT) Pathologist [facility] Free T4 0.82(L) 0.90 - 1.70 ng/dL Blood 07/03/2025 1:54 PM CDT 07/03/2025 2:33 PM CDT Alok Corona MD LAB BLOOD ORDERABLES Fi nal Result Performing Organization Address [facility] de Phone Number [facility] [place] [place] [address] * (ABNORMAL) TSH (04/25/2025 9:52 AM CDT) Pathologist [facility] TSH 9.40(H) 0.27 - 4.20 uIU/mL [facility] Blood 04/25/2025 9:52 AM CDT 04/25/2025 10:07 AM CDT Alok Corona MD LAB BLOOD ORDERABLES Fi nal Result [facility]IM[facility] [address] [facility] [address] [place] [address] * (ABNORMAL) T4, free (04/25/2025 9:52 AM CDT) Free T4 0.78(L) 0.93 - 1.70 ng/dL [facility] Blood 04/25/2025 9:52 AM CDT 04/25/2025 10:07 AM CDT Alok Coorna MD LAB BLOOD ORDERABLES Fi nal Result Performing Organization Address City/[facility] Co de Phone Number POORNIMA JIMENEZDA [address] [facility] [address] [place] [address] from Last 3 Months Insurance [facility] CHOICE PLUS [facility] HMO/PPO Address: [facility] [address] [place] [phone] [place] [address] [facility] [employer] Address: [facility] [address] [place] [address] [employer] [facility] [employer] Address: [facility] [id number] [place] [address] Care Teams Web Operations Manager Relationship Specialty Start Date End Date Noe Ornelas MD PCP - General Internal Medicine 05/16/24
--- OUTSIDE RECORDS SUMMARY | 2025-07-08 18:54 | XMS_ITS | Clinical Summary ---
Author Organization [facility] Address [address] [place] [phone] Phone Care Team Providers Care Calciminer Name Role Phone Urmila Mckeon MD Primary [...] (1 of 3 - 19+ 3-dose series) 05/22 CERVICAL CANCER SCREENING 2019 HPV/Cotest (21-29) 2019 PAP SMEAR 2019 INFLUENZA VACCINE (#1) 2025 Care Teams Calciminer Relationship Specialty Start Date End Date Urmila Mckeon MD [address] [place] [address] [place] [phone] PCP - General Family Practice 09/01/22
[2025-07-08] MEDS: TERBUTALINE SULFATE 1 MG/ML VIAL 0.25 MG SUB-Q (20:55)
[2025-07-08 21:14] LABS: Add Urine Microscopic? YES; Appearance Urine Clear (Clear); Glucose Urine UA Negative (Negative); Leukocyte Esterase Ur 2+ LEU/UL (Negative); Need Manual Microscopic Reviewed; Nitrate Urine Negative (Negative); Non Pathogenic Casts 0-2; Specific Grav Ur 1.019 (1.001-1.035)
[2025-07-08] MEDS: ONDANSETRON HCL ODT 4 MG TABLET PO (22:00)
[2025-07-08 22:20] LABS: Trichomonas Vag PCR NOT DETECTED (NOT DETECTE)
[2025-07-08] MEDS: ACETAMINOPHEN 500 MG TABLET 1000 MG PO (22:53)
[2025-07-08] MEDS: diphenhydrAMINE HCl CAP 25 MG CAPSULE 50 MG PO (22:54)
--- NOTE | 2025-07-24 16:43 | PM.OBTRLD ---
OB - Triage/Final Diagnosis Visit Information Comments/Additional reasons for admission: I have assessed the risk for this patient, Aydee Acosta, and determined that she would benefit from observation care. Evaluation Laboratory results: Laboratory Tests 07/08/25 19:19 Urine Color Yellow Urine Appearance Clear Urine pH 6.0 Ur Specific [place] 1.019 Urine Protein Negative Urine Glucose (UA) Negative Urine Ketones Trace H Ur Blood (Man) Negative Urine Nitrate Negative Urine Bilirubin Negative Urine Urobilinogen 0.2 Add Ur Microanalysis Reviewed Leukocyte Esterase Rfl 2+ H Urine RBC 0-2 Urine WBC 0-5 Ur Squamous Epith Cells Few Urine Bacteria 1+ H Urine Casts 0-2 Urine Mucus Present C. trachomatis (PCR) Not detected N. gonorrhoeae (PCR) Not detected T. vaginalis (PCR) Not detected Final Diagnosis (1) Decreased movement: Code(s): O36.8190 - Decreased movements, unspecified trimester, not applicable or unspecified Status: Acute
== END 2025-07-09 02:10 | disposition home or self-care (01) ==
PROVIDERS: Admitting Provider Obstetrics & Gynecology; PCP Family Medicine; Visit Provider Obstetrics & Gynecology
DX: O36.8190 Decreased fetal movements, unspecified trimester, not applicable or unspecified (principal); R82.90 Unspecified abnormal findings in urine
CPT/HCPCS: 81001; 87086; 87491; 87591; 87661; 96372; A9270; G0378; G0379; J3105

== ENCOUNTER 2025-07-11 13:15 | Outpatient (CLI) | payer OTHER, SELFPAY ==
--- NOTE | ~2025-07-11 | US_ITS ---
EXAMINATION: US OB follow up DATE: 07/11/2025 13:44 INDICATION: growth. Follow-up choroid plexus cyst. TECHNIQUE: Real-time transabdominal obstetric ultrasound. FINDINGS: No prior studies for comparison. There is a single living fetus in transverse left presentation. The placenta is anterior without placenta previa. Placental margin 4.7 cm to the cervix. cardiac activity and movement is noted with a heart rate of 156 beats per minute. The amniotic fluid volume is normal. YARY measures 18.8 cm. The following biometric data were obtained: BPD: 75mm corresponds to gestational age 30 weeks 1 days. Head circumference: 274mm corresponds to gestational age 30 weeks 0 days. Abdominal circumference: 261mm corresponds to gestational age 30 weeks 2 days. Femur length: 60mm corresponds to gestational age 31 weeks 2 days. Estimated weight: 1592grams +/- 239grams 56.5%.] No evidence for choroid plexus cyst on current study. IMPRESSION: 1. Single living intrauterine in transverse presentation with an estimated gestational age of 30 weeks 3 days by inititial ultrasound. Appropriate interval growth. 2. Normal placenta. 3: Normal YARY measures 18.8 cm. Reviewed, dictated and finalized at location O. IMPRESSION: 1. Single living intrauterine in transverse presentation with an est imated gestational age of 30 weeks 3 days by inititial ultrasound. Appropriate interval growth. 2. Normal placenta. 3: Normal YARY measures 18.8 cm.
== END 2025-07-11 13:16 | disposition home or self-care (01) ==
PROVIDERS: PCP Nurse Practitioner Family; Visit Provider Nurse Practitioner Family
DX: O99.210 Obesity complicating pregnancy, unspecified trimester (principal); Z3A.00 Weeks of gestation of pregnancy not specified
CPT/HCPCS: 76816

== ENCOUNTER 2025-08-27 10:26 | Outpatient (CLI) | payer OTHER, SELFPAY ==
[2025-08-27 11:01] VITALS: BP 118/70; PULSE 94
[2025-08-27 11:13] LABS: Hematocrit 34.1 % (37.0-47.0); Hemoglobin 11.2 g/dL (12.0-15.0); Immature Granulocyte Percent A 0.6 % (0-0.5); Lymphocytes Absolute Auto 2.43 K/mm3 (0.9-3.2); Mean Corpuscular HGB Conc 32.8 g/dl (32-36); Mean Corpuscular Hemoglobin 29.6 pg (26-34); Mean Corpuscular Volume 90.0 fl (80-100); Nucleated Red Blood Cells Absolute Auto 0.000 K/mm3 (0.0-0.012); Nucleated Red Blood Cells Perc 0.0 % (0.0-0.2); Platelet Count Result 244 k/mm3 (150-375); Red Blood Count 3.79 M/mm3 (4.2-5.4); White Blood Count 10.6 K/mm3 (4.5-10.0)
[2025-08-27 11:16] VITALS: BP 113/64; PULSE 78
[2025-08-27 11:22] LABS: Add Urine Microscopic? YES; Appearance Urine Clear (Clear); Glucose Urine UA Negative (Negative); Leukocyte Esterase Ur 3+ LEU/UL (Negative); Nitrate Urine Negative (Negative); Non Pathogenic Casts 0-2; Specific Grav Ur 1.016 (1.001-1.035)
[2025-08-27 11:24] LABS: Alanine Aminotransferase 13 U/L (6-35); Albumin Level 3.4 g/dL (3.5-5.1); Alkaline Phosphatase 139 U/L (38-126); Anion Gap 6 mmol/L (4-12); Aspartate Amino Transferase 23 U/L (14-36); Bilirubin,Total 0.3 mg/dL (0.2-1.3); Blood Urea Nitrogen 9 mg/dL (7-17); Calcium 8.7 mg/dL (8.4-10.2); Carbon Dioxide 23 mmol/L (22-30); Chloride 105 mmol/L (98-107); Estimated Glomerular Filt Rate > 60; Glucose 74 mg/dL (65-110); Potassium 3.9 mmol/L (3.4-5.0); Sodium 134 mmol/L (137-145); Total Protein 6.6 g/dL (6.3-8.2); Uric Acid 5.1 mg/dL (2.5-7.5)
[2025-08-27 11:25] VITALS: BMI 35.2
[2025-08-27 11:31] VITALS: BP 112/67; PULSE 76
--- OUTSIDE RECORDS SUMMARY | 2025-08-27 11:32 | XMS_ITS | Clinical Summary ---
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 [facility] [place] [address] Graves disease; Postablative hypothyroidism 07/03/2025 Results Follow-Up [facility] [address] [facility] [address] [place] [phone] Alok Corona MD T3, free, T4, free, TSH, Thyroid stimulating immunoglobulin from Last 3 Months Immunizations Immunization Administration [...] on file Legal Sex Female 10:48 AM TEACHER ADVISOR Gender Identity Not on file Sexual Orientation Not on file Obstetrics History Last Filed Vital Signs Vital Sign Reading Time Taken Comments Blood Pressure 124/82 04/25/2025 9:32 AM CDT Pulse 92 04/25/2025 9:32 AM CDT Temperature 37.4 C (99.3 F) 01/11/2025 9:56 AM TEACHER ADVISOR Respiratory Rate 16 08/23/2024 6:25 PM CDT Oxygen Saturation 98% 01/11/2025 9:56 AM TEACHER ADVISOR Inhaled Oxygen Concentration - - Weight 94.8 [...] Additional history exists Covid-19 Vaccine ( season) 2025 02/05/2022, 12/26/2020, 12/05/2020 Influenza Vaccine (#1) 2025 3, 08/25/2021, 08/23/2017 Hepatitis B Screening Completed 1998 , 1998, 1998 HPV Vaccines Completed 01/09/2013, 08/21, 07/05/2012 Pneumococcal vaccine <65 Aged Out No longer eligible based on patient's age to complete this topic Procedures Procedure Name Priority Date/Time Associated Diagnosis Comments THYROID STIMULATING IMMUNOGLOBULIN Routine 07/03/2025 1:54 PM CDT Graves disease TSH Routine 07/03/2025 1:54 PM CDT Postablative hypothyroidism Graves disease T4, FREE Routine 07/03/2025 1:54 PM CDT Postablative hypothyroidism Graves disease T3, FREE Routine 07/03/2025 1:54 PM CDT Graves disease from Last 3 Months Results * (ABNORMAL) Thyroid stimulating immunoglobulin (07/03/2025 1:54 PM CDT) TSIG 4.0(H) <=1.3 [place] ref Lab Comment: Test Performed by: [facility] [address] [place] [address] Paperboard Machine Operator: Jose Shaw Ph.D.; CLIA# [id number] Blood 07/03/2025 1:54 PM CDT 07/03/2025 3:16 PM CDT us Alok Corona MD LAB BLOOD ORDERABLES Fi nal Result [facility] Department [place] [address] [place] ref Lab * T3, free (07/03/2025 1:54 PM CDT) Free T3 2.3 2.0 - 4.4 pg/mL Blood 07/03/2025 1:54 PM CDT 07/03/2025 2:33 PM CDT Alok Corona MD LAB BLOOD ORDERABLES Fi nal Result Performing Organization Address [facility] Co de Phone Number [facility] [place] [address] * TSH (07/03/2025 1:54 PM CDT) Thyroid Stimulating Hormone 1.32 0.30 - 4.20 mcIUnit/mL Blood 07/03/2025 1:54 PM CDT 07/03/2025 2:33 PM CDT Alok Corona MD LAB BLOOD ORDERABLES Fi nal Result Performing Organization Address [facility] de Phone Number [facility] [place] [address] * (ABNORMAL) T4, free (07/03/2025 1:54 PM CDT) Free T4 0.82(L) 0.90 - 1.70 ng/dL Blood 07/03/2025 1:54 PM CDT 07/03/2025 2:33 PM CDT Alok Corona MD LAB BLOOD ORDERABLES Fi nal Result Performing Organization Address [facility] [place] [address] from Last 3 Months Insurance [facility] [employer] [facility] HMO/PPO Address: [address] [address] [place] [address] [facility] [employer] Care Teams Manager Baby Relationship Specialty Start Date End Date Noe Ornelas MD PCP - General Internal Medicine 05/16/24
[2025-08-27 11:46] VITALS: BP 112/70; PULSE 84
[2025-08-27 11:54] LABS: Total Protein Urine Random < 5 mg/dL
[2025-08-27 11:55] LABS: Ur Ttl Prot Creatinine Ratio < 0.06 mg/mg (0-0.20)
[2025-08-27 12:01] VITALS: BP 105/69; PULSE 82
--- NOTE | 2025-08-27 12:04 | PC.NURSE ---
Called Dr. Bazzi with lab results, ROM plus negative, and BPs. Reactive tracing. March D/C home.
[2025-08-27 17:08] LABS: OBXCEM ROM Plus Negative (Negative)
== END 2025-08-27 12:07 | disposition home or self-care (01) ==
LOC: ANHOBOP 10:33 → ANHOBPP 10:35
PROVIDERS: PCP Internal Medicine; Visit Provider Obstetrics & Gynecology
DX: O13.9 Gestational [pregnancy-induced] hypertension without significant proteinuria, unspecified trimester (principal); Z3A.00 Weeks of gestation of pregnancy not specified
CPT/HCPCS: 36415; 59025; 80053; 81001; 82570; 84112; 84156; 84550; 85025; 87086; 99199

== ENCOUNTER 2025-09-08 21:52 | Observation (INO) | payer OTHER, SELFPAY ==
[2025-09-08 23:34] VITALS: BMI 35.9
--- NOTE | 2025-09-08 23:34 | OBADM ---
This patient, Aydee Acosta, admitted to the OB room Labor/Delivery/Recovery 105 for observation. Patient/family oriented to hospital policies and general routines including ID bracelet, bed and alarms, visiting hours, pain management, procedures, bathroom and other care routines, personal items, smoking policy, room service/diet, and visiting hours. Patient/Family are encouraged to report perceived risks to care and to ask questions if they do not understand what they are told or what they should do.
--- NOTE | 2025-09-10 09:14 | PM.OBTRLD ---
OB - Triage/Final Diagnosis Visit Information Reason for evaluation: threatened labor Comments/Additional reasons for admission: I have assessed the risk for this patient, Aydee Max Acosta, and determined that she would benefit from observation care.
== END 2025-09-08 23:25 | disposition home or self-care (01) ==
PROVIDERS: Admitting Provider Obstetrics & Gynecology; PCP Family Medicine; Visit Provider Obstetrics & Gynecology
DX: O47.1 False labor at or after 37 completed weeks of gestation (principal); Z3A.38 38 weeks gestation of pregnancy
CPT/HCPCS: G0378; G0379

== ENCOUNTER 2025-09-19 01:22 | Inpatient (IN) | payer OTHER, SELFPAY ==
[2025-09-19] VITALS (270 sets, daily range): BP systolic 101–182; BP diastolic 58–137; PULSE 71–140; RESP 19–20; TEMP 36.1–37.5; O2SAT 93–100; BMI 36.2
[2025-09-19 02:03] LABS: Hematocrit 32.7 % (37.0-47.0); Hemoglobin 10.9 g/dL (12.0-15.0); Immature Granulocyte Percent A 0.5 % (0-0.5); Lymphocytes Absolute Auto 2.59 K/mm3 (0.9-3.2); Mean Corpuscular HGB Conc 33.3 g/dl (32-36); Mean Corpuscular Hemoglobin 29.5 pg (26-34); Mean Corpuscular Volume 88.4 fl (80-100); Nucleated Red Blood Cells Absolute Auto 0.000 K/mm3 (0.0-0.012); Nucleated Red Blood Cells Perc 0.0 % (0.0-0.2); Platelet Count Result 222 k/mm3 (150-375); Red Blood Count 3.70 M/mm3 (4.2-5.4); White Blood Count 10.1 K/mm3 (4.5-10.0)
--- NOTE | 2025-09-19 02:03 | LDADM ---
This patient, Aydee Acosta, was admitted to Labor/Delivery/Recovery 108 on 09/19/25 at 01:22. Plans for labor, pain management and were discussed with patient. Patient/family oriented to hospital policies and general routines including ID bracelet, bed and alarms, visiting hours, pain management, procedures, bathroom and other care routines, personal items, smoking policy, room service/diet and guest tray routines, infant security routines, and visiting hours. Patient/Family are encouraged to report perceived risks to care and to ask questions if they do not understand what they are told or what they should do. See OBIX for further documentation.
[2025-09-19] MEDS: LACTATED RINGERS 1,000 ML 125 ML IV CONT ×3 (02:26→13:21)
[2025-09-19 02:46] LABS: Syphilis IgG/IgM Antibody Non-Reactive (Nonreactive)
[2025-09-19] MEDS: DINOPROSTONE 10 MG VAG INSERT VAGINAL (03:06)
--- NOTE | 2025-09-19 06:11 | WPDANESEPP ---
Anes - Eval Pre Procedure Procedure: Labor epidural Date/Time: 09/19/25 06:11 Surgeon: Otis Preop Diagnosis: Abdominal pain with contractions Pre Op Diagnosis: IOL Patient Data Age: 25 Gender: F Height: 1.7 m Weight: 105 kg Last Vital Signs Temp 97.7 F 09/19/25 04:40 Pulse 79 09/19/25 06:01 BP 117/71 09/19/25 06:01 Pulse Ox 99 09/19/25 02:24 O2 Del Method Room Air 09/19/25 02:03 Allergies Allergy/AdvReac Type Severity Reaction Status Date / Time No Known Allergies Allergy Verified 09/19/25 02:03 Home Medications ?Medication ?Instructions ?Recorded ?Confirmed ?Type citalopram 20 mg tablet (Celexa) 20 mg PO DAILY 11/01/22 09/16/25 History calcium carbonate (Calcium 600) 600 mg PO DAILY 05/29/25 09/16/25 History docosahexaenoic acid 200 mg mg PO 05/29/25 09/16/25 History capsule ( DHA) levothyroxine 150 mcg capsule 150 mcg PO DAILY 05/29/25 09/19/25 History fluconazole 150 mg tablet 150 mg PO ONCE #1 tablet 09/04/25 09/16/25 Rx Laboratory Tests 09/19/25 01:33 WBC 10.1 H K/mm3 (4.5-10.0) RBC 3.70 L M/mm3 (4.2-5.4) Hgb 10.9 L g/dL (12.0-15.0) Hct 32.7 L % (37.0-47.0) MCV 88.4 fl (80-100) MCH 29.5 pg (26-34) MCHC 33.3 g/dl (32-36) RDW 13.6 % (11.5-14.5) Plt Count 222 k/mm3 (150-375) MPV 10.5 H fl (7.4-10.4) Immature Gran % (Auto) 0.5 % (0-0.5) Neut % (Auto) 67.0 % (45.5-73.1) Lymph % (Auto) 25.5 % (18.3-44.2) Green % (Auto) 6.1 % (2.6-8.5) Eos % (Auto) 0.5 % (0-4.4) Baso % (Auto) 0.4 % (0.2-1.2) Lymph # (Auto) 2.59 K/mm3 (0.9-3.2) Green # (Auto) 0.6 K/mm3 (0.1-0.6) Eos # (Auto) 0.1 K/mm3 (0-0.3) Baso # (Auto) 0.0 K/mm3 (0.0-0.1) Abs Immat Gran (auto) 0.05 H K/mm3 (0.00-0.031) Absolute Neuts (auto) 6.8 H K/mm3 (1.3-6.7) Absolute Nucleated RBC 0.000 K/mm3 (0.0-0.012) Nucleated RBC % 0.0 % (0.0-0.2) Syphilis IgG/IgM Ab Non-reactive (Nonreactive) Blood Type B Positive Antibody Screen Negative : gestational age HCG: positive Patient hx anesthesia problems: none Family hx anesthesia problems: none Results Review: All pre-operative results and documents have been reviewed as part of the pre-operative evaluation. [facility] Past Medical History Medical History History of chlamydia GERD (gastroesophageal reflux disease) Anxiety and depression Obesity and not yet delivered GERD with esophagitis Irritable bowel syndrome with diarrhea Abdominal bloating Diarrhea Thyroid disorder Hypertension Migraine Anxiety Family History Family History Other No problems noted. Unknown No problems noted. Father Hyperthyroidism Social History Social History Smoking status: Never smoker Drinks per week: 2 Substance use: never Substance use type: does not use Do You Feel Safe in your Home?: Yes Lack of Transportation: No Lack of Food: Never True Current Housing: I Have Housing Concerned About Future Housing: No Difficulty Paying Gas/Electric Bills: No Difficulty Paying for Meds: No Currently Unemployed: No Education: Associate Degree Difficulty w/ Childcare or Family Care: No Living arrangements: with family Spiritual care concerns: No Exam Day of Procedure 09/19/25 06:11 Patient weight: obese
[2025-09-19] MEDS: LEVOTHYROXINE SODIUM 150 MCG TABLET PO (06:55)
--- NOTE | 2025-09-19 08:46 | PM.IMHP ---
H&P: HPI History of Present Illness Date/Time: 09/19/25 08:46 Chief Complaint: Induction of labor Narrative: 25 y/o G1 at 40 weeks gestation here for induction of labor. Cervidil overnight, and she is feeling contractions. remarkable for hyperthyroidism s/p thyroid ablation, now requiring thyroid replacement. She follows with an administrative personal assistant. She has had some intermittently elevated bp readings. Review of Systems Review of Systems: All systems reviewed & are unremarkable except as noted in HPI and below PMFSH Past Medical History Medical History History of chlamydia GERD (gastroesophageal reflux disease) Anxiety and depression Obesity and not yet delivered GERD with esophagitis Irritable bowel syndrome with diarrhea Abdominal bloating Diarrhea Thyroid disorder Hypertension Migraine Anxiety Family History Family History Other No problems noted. Unknown No problems noted. Father Hyperthyroidism Social History Social History Smoking status: Never smoker Drinks per week: 2 Substance use: never Substance use type: does not use Do You Feel Safe in your Home?: Yes Lack of Transportation: No Lack of Food: Never True Current Housing: I Have Housing Concerned About Future Housing: No Difficulty Paying Gas/Electric Bills: No Difficulty Paying for Meds: No Currently Unemployed: No Education: Associate Degree Difficulty w/ Childcare or Family Care: No Living arrangements: with family Spiritual care concerns: No Meds Home Medications and Allergies Home Medications ?Medication ?Instructions ?Recorded ?Confirmed ?Type citalopram 20 mg tablet (Celexa) 20 mg PO DAILY 11/01/22 09/16/25 History calcium carbonate (Calcium 600) 600 mg PO DAILY 05/29/25 09/16/25 History docosahexaenoic acid 200 mg mg PO 05/29/25 09/16/25 History capsule ( DHA) levothyroxine 150 mcg capsule 150 mcg PO DAILY 05/29/25 09/19/25 History fluconazole 150 mg tablet 150 mg PO ONCE #1 tablet 09/04/25 09/16/25 Rx Allergies Allergy/AdvReac Type Severity Reaction Status Date / Time No Known Allergies Allergy Verified 09/19/25 02:03 Vital Signs Vital Signs - 24 hr 09/19/25 02:03 09/19/25 02:10 09/19/25 02:15 Temperature Pulse Rate 78 Respiratory Rate Blood Pressure 149/93 H Pulse Oximetry 95 97 Oxygen Delivery Room Air 09/19/25 02:20 09/19/25 02:24 09/19/25 02:26 Temperature 97.7 F Pulse Rate Respiratory Rate Blood Pressure Pulse Oximetry 99 99 Oxygen Delivery 09/19/25 02:31 09/19/25 02:46 09/19/25 03:16 Temperature Pulse Rate 81 72 73 Respiratory Rate Blood Pressure 122/77 119/76 132/88 Pulse Oximetry Oxygen Delivery 09/19/25 03:31 09/19/25 03:46 09/19/25 04:01 Temperature Pulse Rate 73 71 74 Respiratory Rate Blood Pressure 149/87 H 138/90 128/75 Pulse Oximetry Oxygen Delivery 09/19/25 04:16 09/19/25 04:31 09/19/25 04:40 Temperature 97.7 F Pulse Rate 74 76 Respiratory Rate Blood Pressure 128/73 124/71 Pulse Oximetry Oxygen Delivery 09/19/25 04:46 09/19/25 05:01 09/19/25 05:16 Temperature Pulse Rate 73 81 75 Respiratory Rate Blood Pressure 132/85 119/77 146/84 H Pulse Oximetry Oxygen Delivery 09/19/25 05:31 09/19/25 05:46 09/19/25 06:01 Temperature Pulse Rate 77 79 79 Respiratory Rate Blood Pressure 116/84 120/77 117/71 Pulse Oximetry Oxygen Delivery 09/19/25 06:10 09/19/25 06:16 09/19/25 06:31 Temperature 98.1 F Pulse Rate 88 75 Respiratory Rate Blood Pressure 143/86 H 145/81 H Pulse Oximetry Oxygen Delivery 09/19/25 06:46 09/19/25 07:01 09/19/25 07:16 Temperature Pulse Rate 84 78 72 Respiratory Rate Blood Pressure 131/84 130/87 135/87 Pulse Oximetry Oxygen Delivery 09/19/25 07:31 09/19/25 07:46 09/19/25 08:00 Temperature 98.3 F Pulse Rate 79 85 Respiratory Rate 20 Blood Pressure 133/86 137/78 Pulse Oximetry Oxygen Delivery 09/19/25 08:01 09/19/25 08:16 09/19/25 08:31 Temperature Pulse Rate 81 81 84 Respiratory Rate Blood Pressure 144/93 H 145/88 H 135/94 H Pulse Oximetry Oxygen Delivery Exam Const: Other: Well-developed, well-nourished female in no acute distress. Neck: Other: Neck: Trachea midline, no thyromegaly or masses. Resp: Other: Lungs: Normal respiratory effort. Clear to auscultation bilaterally. Cardio: Other: Heart: Regular rate and rhythm with normal S1-S2. GI: Other: ABD: Soft, nontender, nondistended, gravid. No guarding or rebound tenderness. No hepatosplenomegaly. NST reactive. TOCO: contractions every 2-3 min. : Other: Cervix: 2/80/-2. AROM with meconium-stained fluid. IUPC placed. Vertex. Cervidil removed. Back/Spine/Pelvis: Other: Back: No CVA tenderness. Skin: Other: Skin: No lesions, rashes or ulcers noted. Extrem: Other: Extremities: nontender with no edema Psych: Other: Mental status grossly normal, with normal mood and affect. H&P: Results Labs Labs: Short CBC 09/19/25 Range/Units 01:33 WBC 10.1 H (4.5-10.0) K/mm3 Hgb 10.9 L (12.0-15.0) g/dL Hct 32.7 L (37.0-47.0) % Plt Count 222 (150-375) k/mm3 Assessment and Plan Assessment and plan (1) Term : Code(s): Z34.90 - Encounter for supervision of normal , unspecified, unspecified trimester Status: Acute Plan A: IUP at 40 weeks, here for induction of labor. P: S/p cervidil. Plan oxytocin as needed. Peds aware of meconium, thyroid disease.
[2025-09-19] MEDS: TERBUTALINE SULFATE 1 MG/ML VIAL 0.25 MG SUB-Q (09:18)
[2025-09-19] MEDS: ONDANSETRON INJ 4 MG/2 ML VIAL IV PUSH ×3 (09:32→23:58)
[2025-09-19] MEDS: fentaNYL CITRATE INJ (*CRX) 100 MCG/2 ML VIAL IV PUSH (09:40)
--- NOTE | 2025-09-19 12:46 | PM.OBPNLAB ---
Pain Control Date/time seen: 09/19/25 12:46 Comments: Comfortable with epidural. Pelvic Exam Dilation (cm): 3 Effacement (%): 80 station: -2 Contractions Monitor mode: Internal Contraction frequency: 3 Contraction pattern: Regular Status status: Category l Assessment and Plan Comments: Augment labor as needed.
[2025-09-19] MEDS: OXYTOCIN 30 UNITS/NS 500 ML 30 UNITS/500 ML BAG IV CONT (14:43)
--- NOTE | 2025-09-19 17:12 | PM.OBPNLAB ---
Pain Control Date/time seen: 09/19/25 17:12 Comments: Comfortable Pelvic Exam Dilation (cm): 4 Effacement (%): 80 station: -2 Contractions Monitor mode: Internal Contraction frequency: 3 Contraction pattern: Regular Status status: Category l Assessment and Plan Pitocin rate (mU/min): 2 Comments: Continue labor augmentation.
--- NOTE | 2025-09-19 23:54 | PM.OBPNLAB ---
Pain Control Date/time seen: 09/19/25 23:54 Comments: Epidural has been replaced and her pain is under control. Pelvic Exam Dilation (cm): 4 Effacement (%): 80 station: -2 Contractions Monitor mode: Internal Contraction frequency: 3 Contraction pattern: Regular Status status: Category l Assessment and Plan Comments: A: Arrest of dilation. She has had no meaningful change in cervical dilation in about 12 hours despite adequate contractions by IUPC monitoring. Also, she has had elevated bp readings. P: Offered primary . She understands risks of surgery to include risks of anesthesia, risks of pain, infection, bleeding, blood products, thromboembolic phenomena and damage to adjacent structures such as bowel, bladder, ureters, blood vessels and nerves. She understands all these risks and elects to proceed with primary . Will continue to watch bp.
[2025-09-19] MEDS: FAMOTIDINE 20 MG/2 ML VIAL IV PUSH (23:57)
[2025-09-19] MEDS: ACETAMINOPHEN 500 MG TABLET 1000 MG PO (23:58)
[2025-09-20] VITALS (50 sets, daily range): BP systolic 111–158; BP diastolic 70–103; PULSE 89–119; RESP 14–24; TEMP 36.5–37.6; O2SAT 96–100
--- NOTE | 2025-09-20 00:53 | S_PTH ---
PATIENT: Aydee Acosta LOC: [facility] U#:[id number] AGE/SX: 25/F ROOM: 286 RE09/19/[address]: Simone Cross MD : 2000 BED: 00 DIS: 09/22/2025 SPEC #: [id number] RECD: 09/20/25 11:20 STATUS: TANYA REQ #: [id number] HAYLIE: 09/20/25 00:[address]: Adolph Bazzi DEPT: [facility] Surgical RECD BY: Lilly Nickerson ENTERED: 09/20/25 11:22 SP TYPE: Surgical OTHR DR: Noe Ornelas, Tissues: A - Placenta Procedures: Hematoxylin and Eosin Stain Gross and Microscopic Level 5
--- NOTE | 2025-09-20 01:08 | W.PM.OBCSD ---
OB - Delivery Note Procedure Delivery date: 09/20/25 Pre-op diagnosis: Arrest of Dilation Post-op Diagnosis: Same Induction method: Per Cervidil Protocol Delivery augmentation: Rupture of Membranes and Pitocin Delivery monitor: External FHT, External Uterine and Internal Uterine Procedure Performed: Primary Surgeon: Adolph Bazzi MD Anesthesia type: Epidural Description of Procedure/Findings: Findings: Normal-appearing uterus, tubes and ovaries. Meconium-stained fluid. Techniques: The patient was taken to the operating room where she was prepared and draped in the usual sterile fashion in dorsal supine position with a leftward tilt. She received cefazolin preoperatively. Epidural anesthesia was found to be adequate. A Pfannenstiel skin incision was made and carried through to the underlying layer of the fascia. The fascia was incised in the midline and the incision was extended laterally. The fascia was dissected free of the underlying rectus muscles. The rectus muscles were in the midline. The peritoneum was identified, tented up and entered sharply. The peritoneal incision was extended superiorly and inferiorly with good visualization of the bladder. The bladder blade was placed. The vesicouterine peritoneum was identified, tented up and entered sharply. The incision was extended laterally and the bladder flap was developed. The bladder blade was replaced. The uterus was then incised sharply in a transverse fashion along the lower uterine segment. The incision was extended laterally. The infant's head was delivered atraumatically to the sterile field, followed by the body. The nose and mouth were bulb suctioned. After a delay, the cord was clamped and cut. The was handed off the field. Cord blood was collected. The placenta was removed manually and was passed off the field. The uterus was exteriorized and cleared of all clots and debris. The uterine incision was reapproximated using 0 Monocryl in a running, locked fashion. Excellent hemostasis resulted as did excellent reapproximation of the normal anatomy. The uterus was returned the abdomen. The pelvis was irrigated copiously with warmed normal saline. Rigorous hemostasis was assured. The fascial layer was reapproximated using 0 Vicryl in a running fashion. The skin was closed with a running, subcuticular stitch of 4 0 Vicryl. Dermaflex was applied externally. Sponge, lap, needle and instrument counts were correct. The patient was taken to the recovery room in stable condition. The infant went to the nursery in stable condition. I was present and scrubbed the entire procedure. Specimen: Yes (Cord blood, placenta) Estimated Blood Loss: 1,365 Drains: Yes (Blood) Packing: No Pathology: Yes (Cord blood, placenta) Complications: None Condition: Stable Disposition: PACU [place] Baby Date of : 09/20/25 Time of : 00:38 Gestational Age by Date: 40 Infant gender: Female Weight (pounds): 7 Weight (ounces): 14 presentation: vertex position: Left Occiput Posterior Placenta delivery description: Manual Removal and Normal Configuration Cord Vessel Description: 3 Vessels
[2025-09-20] MEDS: LIDOCAINE 5% PATCH 1 PATCH TRANSDERM (03:11)
--- NOTE | 2025-09-20 03:53 | SUR.PREOP ---
Dr Bazzi called and notified of elevated blood pressures. New orders received to give Procardia XL 30 now and schedule PO daily. Orders confirmed.
--- NOTE | 2025-09-20 04:13 | OBPPTRN ---
Patient transferred to post room #286 via stretcher. Support person present. Oriented to unit, room, information board, rooming in, admission packet and security measures. Patient verbalizes understanding.
[2025-09-20] MEDS: ACETAMINOPHEN 500 MG TABLET 1000 MG PO ×4 (04:45→23:10)
[2025-09-20] MEDS: KETOROLAC 15 MG/ML VIAL (*BKC) IV PUSH ×3 (04:45→16:54)
[2025-09-20 05:57] LABS: Hematocrit 28.6 % (37.0-47.0); Hemoglobin 9.5 g/dL (12.0-15.0); Immature Granulocyte Percent A 0.5 % (0-0.5); Lymphocytes Absolute Auto 0.95 K/mm3 (0.9-3.2); Mean Corpuscular HGB Conc 33.2 g/dl (32-36); Mean Corpuscular Hemoglobin 30.1 pg (26-34); Mean Corpuscular Volume 90.5 fl (80-100); Nucleated Red Blood Cells Absolute Auto 0.000 K/mm3 (0.0-0.012); Nucleated Red Blood Cells Perc 0.0 % (0.0-0.2); Platelet Count Result 164 k/mm3 (150-375); Red Blood Count 3.16 M/mm3 (4.2-5.4); White Blood Count 23.0 K/mm3 (4.5-10.0)
[2025-09-20] MEDS: DEXTROSE 5%/0.45% SOD CHL 1,000 ML 125 ML IV CONT (06:32)
[2025-09-20] MEDS: LEVOTHYROXINE SODIUM 150 MCG TABLET PO (07:06)
[2025-09-20] MEDS: SIMETHICONE 80 MG TAB.CHEW PO ×2 (08:43→14:41)
[2025-09-20] MEDS: DOCUSATE SODIUM 100 MG CAPSULE PO ×2 (08:43→16:53)
[2025-09-20] MEDS: MULTIVIT/MIN/PREN/FOL AC/IRON TABLET 1 TAB PO (08:43)
[2025-09-20] MEDS: CALCIUM CARBONATE (OSCAL) 500 MG TABLET PO (11:04)
[2025-09-20] MEDS: oxyCODONE HCL (*CRX) 5 MG TAB IR PO (14:41)
[2025-09-20] MEDS: CITALOPRAM HYDROBROMIDE 20 MG TABLET PO (20:55)
[2025-09-20] MEDS: IBUPROFEN 600 MG TABLET PO (23:10)
[2025-09-21] MEDS: oxyCODONE HCL (*CRX) 5 MG TAB IR PO ×2 (01:35→15:20)
[2025-09-21] MEDS: IBUPROFEN 600 MG TABLET PO ×4 (05:00→22:32)
[2025-09-21] MEDS: LIDOCAINE 5% PATCH 1 PATCH TRANSDERM (05:00)
[2025-09-21] MEDS: ACETAMINOPHEN 500 MG TABLET 1000 MG PO ×4 (05:00→22:32)
[2025-09-21] MEDS: LEVOTHYROXINE SODIUM 150 MCG TABLET PO (07:36)
--- NOTE | 2025-09-21 08:15 | PC.NURSE ---
Mother called out for latching assistance. Baby is swaddled and in a cradle hold. Mom states that baby was latching well to the left breast yesterday but has struggled on the left overnight. Baby is eager and roots but does not give a wide gape. Reviewed with mom the benefits of a position other than cradle (like cross cradle) that will help her control baby's head. We repositioned infant tummy to tummy and with more neck extension. Baby was finally able to latch even though she did not give a very wide open mouth. Mom states that she feels like baby clamps down on the nipple. Reviewed that with increased face and neck muscles baby will no longer need to clamp down to maintain the latch. We observed infant's lips for flanging and they appear to be appropriate. The latch looks deep and baby suckles consistently. Mom is encouraged to allow baby to nurse as long as desired and to call out if she needs more latching assistance or help switching sides. Patient agrees to call out today and would also like a review of her Spectra pump. Patient prefers to offer bottles right away rather than waiting until is well established. Reviewed the risks of using artificial nipples and learning at the same time. Primary RN updated.
[2025-09-21 09:00] VITALS: BP 146/95; PULSE 101; RESP 16; TEMP 36.7; O2SAT 98
[2025-09-21] MEDS: SIMETHICONE 80 MG TAB.CHEW PO ×3 (09:00→17:10)
[2025-09-21] MEDS: MULTIVIT/MIN/PREN/FOL AC/IRON TABLET 1 TAB PO (09:00)
[2025-09-21] MEDS: CALCIUM CARBONATE (OSCAL) 500 MG TABLET PO (09:00)
[2025-09-21] MEDS: DOCUSATE SODIUM 100 MG CAPSULE PO ×2 (09:00→17:10)
--- NOTE | 2025-09-21 09:02 | PM.OBPNVD ---
OB - PN: Subj Subjective Date/time seen: 09/21/25 09:02 Interval history: States lochia is decreasing. Patient comments: pain well controlled and tolerating diet [place] baby status: doing well OB - PN: Obj Data Labs 09/20/25 05:49 OB - PN A/P Assessment and Plan (1) Delivery by section: Status: Acute Assessment and Plan: POD1. doing well. Routine post op care. Time Spent With Patient Time: Total time spent is greater than 50% in coordination of care (as documented) at patient's floor/unit and/or counseling patient: Exam Const: General: comfortable and no acute distress Resp: Effort & Inspection: normal respiratory effort GI: Other: Incision intact fundus firm below umbilicus nontender Neuro: General: patient oriented x3 Extrem: General: normal to inspection and no calf tenderness Psych: Mental Status: mental status grossly normal Affect: normal affect
--- NOTE | 2025-09-21 13:05 | WPDANLDPN2 ---
Anes-Prog Note L&D Date/Time: 09/21/25 13:05 Comfortable throughout: section Neuraxial method: epidural Epidural/Spinal procedure site: clean & non-tender Neuro status: Neuro function grossly intact. Cardiovascular status: normal Respiratory status: normal Airway patency: baseline Mental status: baseline Post-Op hydration status: normal Vital Signs: Last Vital Signs Temp 36.8 C 09/20/25 20:46 Pulse 103 H 09/20/25 20:46 Resp 16 09/20/25 20:46 BP 111/70 09/20/25 20:46 Pulse Ox 98 09/20/25 20:46 O2 Del Method Room Air 09/20/25 20:46 Pain score (VAS): 3 I/O: Intake & Output 09/20/25 09/21/25 09/21/25 23:59 07:59 15:59 Intake Total 800 Output Total 1000 2049 Balance -200 -2049 Post-procedural complaints: none Patient feedback: Patient satisfied with anesthetic care.
--- NOTE | 2025-09-21 13:05 | WPDANLDNPN2 ---
Anes-Prog Note L&D-Neuraxial Date/Time: 09/21/25 13:05 Neuraxial medications: epidural PF morphine Opiod-related complaints: none Patient feedback: Patient satisfied with post-operative pain management.
--- NOTE | 2025-09-21 17:45 | PC.NURSE ---
Breast pump instruction provided due to maternal request. She has her Spectra pump here and has not used it yet. Instructions given on cleaning, care, usage, that there should be no pain, pumping schedule for milk production, collection, and storage of human milk. Patient was assessed for correct flange size, she will start with the 24mm flange and will look into getting a smaller silicone insert for a 21mm or 19mm size. Recommended breast stimulation for adequate milk production every 3 hours (8 times in 24 hours) 1-2 times at night. Reviewed when to pump, suggested settings/modes, and pumping while feeding. Mother voiced understanding of the education shared along with mom/baby guide for additional resource information. Father is present and supportive, listening to the education provided. Reported to the Primary RN.
[2025-09-21 20:02] VITALS: BP 127/68; PULSE 111; RESP 18; TEMP 36.6; O2SAT 96
[2025-09-21] MEDS: CITALOPRAM HYDROBROMIDE 20 MG TABLET PO (20:20)
--- NOTE | 2025-09-22 01:12 | PC.NURSE ---
Daylight Savings Time For Daylight Savings Time Ending in the Fall - Clocks are moved back. For [facility], the time of change occurs at 0200 hrs. Time is taken from the windows server specialist. This entry on the patient's chart recognizes the change in time reflected during documentation. Example: 2 entries for vital signs may be charted for 0200 hrs.
[2025-09-22] MEDS: IBUPROFEN 600 MG TABLET PO ×2 (03:30→09:00)
[2025-09-22] MEDS: LIDOCAINE 5% PATCH 1 PATCH TRANSDERM (03:30)
[2025-09-22] MEDS: ACETAMINOPHEN 500 MG TABLET 1000 MG PO ×2 (03:30→09:00)
--- NOTE | 2025-09-22 06:49 | PM.OBPNVD ---
OB - PN: Subj Subjective Date/time seen: 09/22/25 06:49 Interval history: States lochia is decreasing. Patient comments: pain well controlled, tolerating diet and other (Decreasing lochia.) [place] baby status: doing well and nursing well OB - PN: Obj Data Labs 09/20/25 05:49 OB - PN A/P Assessment and Plan (1) Delivery by section: Status: Acute Assessment and Plan: POD2. Doing well. Request discharge to home. Baby doing well. Discharge precautions discussed. Plan day: 2 Plan: discharge home and other Comments: Patient doing well. Call office for appointment. Discharge instructions provided. Time Spent With Patient Time: Total time spent is greater than 50% in coordination of care (as documented) at patient's floor/unit and/or counseling patient: Time with patient: less than 15 minutes Exam GI: Other: incision intact Psych: Affect: normal affect Other: Abd: fundus firm below umbilicus, nontender Perineum: healing Ext: nontender
[2025-09-22] MEDS: LEVOTHYROXINE SODIUM 150 MCG TABLET PO (07:30)
[2025-09-22 09:00] VITALS: BP 138/89; PULSE 89; RESP 16; TEMP 36.6; O2SAT 97
[2025-09-22] MEDS: SIMETHICONE 80 MG TAB.CHEW PO (09:00)
[2025-09-22] MEDS: MULTIVIT/MIN/PREN/FOL AC/IRON TABLET 1 TAB PO (09:00)
[2025-09-22] MEDS: DOCUSATE SODIUM 100 MG CAPSULE PO (09:00)
[2025-09-22] MEDS: CALCIUM CARBONATE (OSCAL) 500 MG TABLET PO (09:00)
[2025-09-23 08:30] VITALS: BP 146/90; PULSE 106; RESP 18; TEMP 36.8; O2SAT 100
--- NOTE | 2025-09-26 17:29 | PM.OBDSVD ---
DS: Admitting Diagnosis Discharge Date 09/22/25 Admitting Diagnosis IUP at 40 weeks DS: Discharge Diagnosis Discharge Diagnosis (1) delivery delivered: Code(s): O82 - Encounter for delivery without indication Status: Acute OB - DS: Summary OB Procedures : NST OB Procedures Intrapartum: OB Procedures: : None Peripartum Data Procedures: Procedures Operation Date: 09/20/25 00:00 Actual Procedure Side Surgeon p Section Not Applicable Adolph Bazzi MD Time Spent with Patient Time attestation: Total time spent providing and/or coordinating discharge services: DS: Data Data Completed and Pending Completed studies during hospitalization: Pending at discharge 09/20/25 00:53 Surgical [PTH] Routine Discharge Plan Discharge Attending physician on discharge: Adolph Bazzi Consulting providers: Brissa Castorena; Gus Cano Jr. Discharging Clinician: Simone Cross Anticipated Discharge Date/Time: 09/22/25 08:20 Patient Disposition: Home Activity: may shower, no straining, no driving and pelvic rest Diet: regular Discharge Instructions: Education: Mom and Baby Guide Given to: Mother Follow-Up: Call your delivering provider's office for an appointment to be seen in: Call office for an appointment Mom and baby should come to the [facility] for the follow-up appointment. Appointment Date/Time: September 23, 2025 at 8:00 am What to expect at your follow-up visit: Blood Pressure Check Physical Assessment Call [phone] if you are unable to keep your appointment time. BREAST CARE: * Wear a snug supportive bra. * For engorgement discomfort: Breast Feeding: * Apply warm moist washcloths * Express milk as needed to relieve engorgement * Wear loose clothing Bottle Feeding: * May apply ice packs * For sore nipples: * Identify correct latch-on * Apply warm moist washcloths before and after nursing * Air dry nipples after nursing * May apply Lansinoh cream to nipples ABDOMINAL INCISION: * Allow incision to air dry * Do NOT use lotions for powders on your incision * When showering, allow soap and water to run over the incision, but do not wash incision PERINEAL CARE: * Until bleeding stops, use your milad bottle after urinating * Change your pad frequently throughout the day * You may take sitz baths several times a day (fill your bathtub with warm water and soak for 20 minutes.) Do NOT bathe in the water * No tub baths until seen by your physician - You may shower ACTIVITY: * Rest as much as possible. * Do not exercise or lift anything heavier than your baby (such as laundry or other children.) * Avoid stairs or driving as much as possible. * Do not put anything into the vagina. No douching, tampons, or sexual activity until seen by physician. NOTIFY PHYSICIAN IF YOU HAVE ANY QUESTIONS OR IF ANY OF THE FOLLOWING SYMPTOMS OCCUR: * If your incision becomes red, swollen, or more painful than what you have experienced in the hospital. * If your vaginal bleeding becomes foul smelling. * If your vaginal bleeding becomes more heavy than a period or if your bleeding changes from pink to bright red. However, you may pass an occasional walnut-sized clot once or twice for the first week . * If you experience a sharp, shooting pain in you calves. * If you discover a hard, reddened area on your breast or if you experience flu-like symptoms. DIET: * Eat regular, well-balanced meals. * Drink plenty of fluids daily. If , drink to thirst. Patient Instructions: Antibiotic Form Patient Language: Czech Stand Alone Forms: General Discharge Information Follow-up/Referrals: Adolph Bazzi MD [Physician, CERTIFIED REAL ESTATE APPRAISER] - Call for Appointment Discharge Medications: New polysaccharide iron complex 150 mg iron Capsule 150 mg PO BIDWM Qty: 30 0RF ibuprofen 600 mg Tablet 600 mg PO Q6HR Qty: 30 0RF oxycodone 5 mg Tablet 5 mg PO Q4H PRN (Reason: Pain Rated 4-6) Qty: 20 0RF Continued DHA 200 mg capsule PO Discontinued calcium carbonate [Calcium 600] 600 mg calcium (1,500 mg) tablet 600 mg PO DAILY levothyroxine 150 mcg capsule 150 mcg PO DAILY citalopram [Celexa] 20 mg Tablet 20 mg PO DAILY fluconazole 150 mg tablet 150 mg PO ONCE Qty: 1 0RF Rx Instructions: as a single dose Date of admission: 09/19/25 01:22 Primary Care Provider: Johnson,Noe James Admitting Provider: Adolph Bazzi Attending physician on admission: Simone Cross Condition: Stable
--- NOTE | 2025-09-26 17:30 | WPDHPUPDATE1 ---
History and Physical Update Update Date/Time: 09/26/25 17:30 History and Physical has been reviewed, including an updated exam of the patient. There are NO changes in the patient's condition. Risks, benefits, and alternatives have been discussed and questions answered. Patient agrees to proceed with procedure.
== END 2025-09-22 13:30 | disposition home or self-care (01) | DRG 788 ==
LOC: ANHOB2 09-22 08:26 → ANHLDR 09-24 08:38 → ANHOB2 09-24 08:38
PROVIDERS: Admitting Provider Obstetrics & Gynecology; PCP Internal Medicine; Visit Provider Obstetrics & Gynecology
PROC: (CPT 59514; principal; 2025-09-20)
DX: O99.284 Endocrine, nutritional and metabolic diseases complicating childbirth (principal); E03.9 Hypothyroidism, unspecified; Z3A.40 40 weeks gestation of pregnancy; Z37.0 Single live birth; O62.1 Secondary uterine inertia; O77.0 Labor and delivery complicated by meconium in amniotic fluid; O99.344 Other mental disorders complicating childbirth; F41.9 Anxiety disorder, unspecified; F32.A Depression, unspecified
CPT/HCPCS: 36415; 85025; 86593; 86850; 86900; 86901; 88307; A9270; J1885; J2004; J2274; J2371; J2405; J2590; J2704; J2795; J3010; J3105; J7120

== ENCOUNTER 2025-10-26 12:26 | Emergency (ER) | payer OTHER, SELFPAY ==
[2025-10-26] VITALS (18 sets, daily range): BP systolic 118–138; BP diastolic 67–89; PULSE 82–94; RESP 17–20; TEMP 36.5; O2SAT 97–100
--- NOTE | ~2025-10-26 | CT_ITS ---
Aydee Granters EXAMINATION: CT abdomen pelvis w con COMPARISON: None HISTORY: infection s/p cesearean section TECHNIQUE: Axial images were obtained through the abdomen, pelvis post administration of IV contrast. Oral contrast was also administered. Coronal reconstruction images were obtained from the axial views. CT scan performed using dose optimization techniques including the following automated exposure control; adjustment of mA and/or kV; use of iterative reconstruction technique. Automatic exposure control was used to reduce radiation dose. Permanent radiation dose record is archived to PACS. FINDINGS: CT abdomen: LUNG BASES: The lung bases are clear. The visualized portions of the heart and pericardium are unremarkable. LIVER: The portal vein is patent. No intrahepatic biliary duct dilatation. SPLEEN: Unremarkable. KIDNEYS: Right Kidney: Unremarkable. No calculi. No hydronephrosis. Left Kidney: Unremarkable. No calculi. No hydronephrosis ADRENAL GLANDS: Unremarkable. PANCREAS: Unremarkable. GALLBLADDER/BILIARY: The gallbladder appears contracted. STOMACH AND ESOPHAGUS: Visualized stomach and esophagus within normal limits. BOWEL/MESENTERY: Moderate fecal content. No colitis or diverticulitis. Appendix is not clearly identified however there is no inflammation surrounding the cecum. No stranding within the mesentery. There are no thickened or dilated loops of small bowel. ADENOPATHY/RETROPERITONEUM: No lymphadenopathy. AORTA/VASCULATURE: Normal caliber aorta. FREE FLUID OR FREE AIR: No free fluid.. CT pelvis: SOLID ORGANS/REPRODUCTIVE: Unremarkable. BLADDER: Within normal limits. OSSEOUS STRUCTURES: No acute osseous abnormality.No suspicious lesions. OVERLYING SOFT TISSUES: Within the soft tissues there is minimal stranding noted but no discrete subcutaneous air or loculated fluid collection to suggest abscess. There is no gross rectus sheath hematoma noted of the abdominal wall. IMPRESSION: 1. No etiology identified to explain the patient's symptoms. Follow-up suggested if symptoms persist. Reviewed, dictated and finalized at location P. BIOLOGY IMPRESSION: 1. No etiology identified to explain the patient's symptoms. Follow-up suggeste d if symptoms persist.
--- OUTSIDE RECORDS SUMMARY | 2025-10-26 14:37 | XMS_ITS | Clinical Summary ---
Author Organization [facility] [address] Address [address] [place] [address] Care Team Providers Care Play Back Operator Name Role Phone Noe Ornelas MD Primary Care Provider [phone] Allergies No known active allergies Medications citalopram [...] 05/16/2024 Assessment & Plan (11/15/2024 1:04 PM RETORT FURNACE HELPER): She is s/p REED nearly 3 months [...] Encounters Date Type Department Care Team Description 09/23/2025 Orders Only [facility] [address] [id number] Noe Ornelas MD 08/29/2025 Orders Only [facility] [address] [address] Noe Ornelas MD 08/27/2025 Orders Only [facility] [address] [place] [id number] Noe Ornelas MD from Last 3 Months Immunizations Immunization Administration [...] Comments Hx Other Medical hypothyroid; Co mments: [facility] 01/13/2017 - Depression Anxiety Thyroid disease Hypertension [...] on file Legal Sex Female 10:48 AM RETORT FURNACE HELPER Gender Identity Not on file Sexual Orientation Not on file Last Filed Vital Signs Vital Sign Reading Time Taken Comments Blood Pressure 124/82 04/25/2025 9:32 AM CDT Pulse 92 04/25/2025 9:32 AM CDT Temperature 37.4 C (99.3 F) 01/11/2025 9:56 AM RETORT FURNACE HELPER Respiratory Rate 16 08/23/2024 6:25 PM CDT Oxygen Saturation 98% 01/11/2025 9:56 AM RETORT FURNACE HELPER Inhaled Oxygen Concentration - - Weight 94.8 [...] 02/05/2022, 12/26/2020, 12/05/2020 Influenza Vaccine (#1) 2025 , 08/25/2021, 08/23/2017 Hepatitis B Screening Completed 1998 , 1998, 1998 HPV Vaccines Completed 01/09/2013, 08/21, 07/05/2012 Pneumococcal vaccine <65 Aged Out No longer eligible based on patient's age to complete this topic Procedures Procedure Name Priority Date/Time Associated Diagnosis Comments SCAN - PATHOLOGY 09/23/2025 9:40 AM RETORT FURNACE HELPER SCAN - LABS 08/29/2025 6:55 AM CDT SCAN - LABS 08/27/2025 6:13 PM CDT from Last 3 Months Results * SCAN - PATHOLOGY (09/23/2025 9:40 AM RETORT FURNACE HELPER) us Noe Ornelas MD Final Result * SCAN - LABS (08/29/2025 6:55 AM CDT) us Noe Ornelas MD Final Result * SCAN - LABS (08/27/2025 6:13 PM CDT) us Noe Ornelas MD Final Result from Last 3 Months Insurance [facility] [employer] [id number] [place] [address] [employer] Address: [facility] [address] [place] [address] [facility] [employer] Address: [facility] [id number] [place] [address] Care Teams Play Back Operator Relationship Specialty Start Date End Date Noe Ornelas MD PCP - General Internal Medicine 05/16/24
--- NOTE | 2025-10-26 15:37 | ED_ITS ---
HPI - Recheck/Abnormal Lab/Rx General Chief Complaint: Recheck/Abnormal Lab/Rx Stated Complaint: 5 weeks post part C section infection Time Seen by Provider: 10/26/25 14:20 History of Present Illness HPI narrative: Patient is a 25-year-old female who presents to the ER with a slightly dehisced incision. She reports she delivered approximately 5 weeks ago. Patient reports 2 nights ago she woke up and noticed fluid around the left side of her incision. She reports yesterday she called her OBGYN and they put her on oral antibiotics but they have been unable to fill her prescription yet. Patient reports earlier today she noticed pus coming from the incision site. She also endorses increased abdominal pain. Patient reports this morning she was clammy and sweaty. She endorses history abnormal thyroid levels and thrush. Patient and her infant are currently being treated for thrush. She denies any urinary symptoms, increased vaginal bleeding, excessive redness around the incisional site, or excessive redness to her breasts. Related Data Home Medications ?Medication ?Instructions ?Recorded ?Confirmed ?Last Taken ?Type docosahexaenoic acid 200 mg mg PO 05/29/25 10/01/25 20:00 History capsule ( DHA) citalopram 20 mg tablet 20 mg PO DAILY 10/01/2509/21 Unknown History levothyroxine 150 mcg tablet 150 mcg PO DAILY 10/01/25 10/01/25 Unknown History (Synthroid) Allergies Allergy/AdvReac Type Severity Reaction Status Date / Time No Known Allergies Allergy Verified 10/26/25 12:36 Review of Systems 2 Review of Systems: All systems reviewed & are unremarkable except as noted in HPI and below PMFSH Past Medical History Medical History History of chlamydia GERD (gastroesophageal reflux disease) Anxiety and depression Obesity and not yet delivered GERD with esophagitis Irritable bowel syndrome with diarrhea Abdominal bloating Diarrhea Thyroid disorder Hypertension Migraine Anxiety Family History Family History Other No problems noted. Unknown No problems noted. Father Hyperthyroidism Social History Social History Smoking status: Never smoker Drinks per week: 2 Substance use: never Substance use type: does not use Lack of Transportation: No Lack of Food: Never True Current Housing: I Have Housing Concerned About Future Housing: No Difficulty Paying Gas/Electric Bills: No Difficulty Paying for Meds: No Currently Unemployed: No Education: Associate Degree Difficulty w/ Childcare or Family Care: No Living arrangements: with family Spiritual care concerns: No Exam 2 Narrative: GENERAL: Well appearing, well-nourished, non-toxic, in no acute distress. HEAD: Normocephalic, atraumatic. NECK: Supple. No adenopathy, no masses. RESPIRATORY: Airway patent, respirations nonlabored. Clear to auscultation bilaterally, no rales, rhonchi, wheezing. CARDIOVASCULAR: Regular rate and rhythm without murmurs, rubs, or gallops. Peripheral pulses 2+ and equal bilaterally. ABDOMINAL: Soft, tender with palpation to left lower quadrant, nondistended, no hepatosplenomegaly. Normoactive BS. MUSCULOSKELETAL: Moves all extremities. Strength/ROM intact without gross deformities. SKIN: Warm, dry, normal color. No rashes. No visible redness although patient does have none approximately 1 cm area of dehiscence to her left lower abdomen, mild amount of serosanguineous fluid expressed from site with palpation NEURO: A&O X3. Speech clear. Cranial nerves II-XII intact. No ataxic movements. PSYCHIATRIC: Appropriate mood and affect. Normal interaction. Course Vital Signs Vital signs: Vital Signs Temperature 36.5 C 10/26/25 12:28 Pulse Rate 94 10/26/25 12:28 Respiratory Rate 17 10/26/25 12:28 Blood Pressure 126/79 10/26/25 12:28 Pulse Oximetry 98 10/26/25 12:28 Oxygen Delivery Room Air 10/26/25 12:28 Temperature 36.5 C 10/26/25 12:28 Pulse Rate 82 10/26/25 16:08 Respiratory Rate 18 10/26/25 16:08 Blood Pressure 123/75 10/26/25 17:12 Pulse Oximetry 100 10/26/25 17:12 Oxygen Delivery Room Air 10/26/25 12:28 [facility] MDM Narrative Medical decision making narrative: Patient is a 25-year-old female who presents to the ER with a slightly dehisced incision. She reports she delivered approximately 5 weeks ago. Patient reports 2 nights ago she woke up and noticed fluid around the left side of her incision. She reports yesterday she called her OBGYN and they put her on oral antibiotics but they have been unable to fill her prescription yet. Patient reports earlier today she noticed pus coming from the incision site. She also endorses increased abdominal pain. Patient reports this morning she was clammy and sweaty. She endorses history abnormal thyroid levels and thrush. Patient and her infant are currently being treated for thrush. She denies any urinary symptoms, increased vaginal bleeding, excessive redness around the incisional site, or excessive redness to her breasts. Labs Ordered: CBC, CMP, UA, PTT, INR, lactic acid, CRP, blood cultures Imaging Ordered: CT abdomen pelvis Medications Ordered: 3 L normal saline IV bolus, Ancef 1 g IV, [place] p.o. Results: Pt's CT scan indicates Right Kidney: Unremarkable. No calculi. No hydronephrosis. Left Kidney: Unremarkable. No calculi. No hydronephrosis ADRENAL GLANDS: Unremarkable. PANCREAS: Unremarkable. GALLBLADDER/BILIARY: The gallbladder appears contracted. STOMACH AND ESOPHAGUS: Visualized stomach and esophagus within normal limits. BOWEL/MESENTERY: Moderate fecal content. No colitis or diverticulitis. Appendix is not clearly identified however there is no inflammation surrounding the cecum. No stranding within the mesentery. There are no thickened or dilated loops of small bowel. ADENOPATHY/RETROPERITONEUM: No lymphadenopathy. AORTA/VASCULATURE: Normal caliber aorta. FREE FLUID OR FREE AIR: No free fluid.. CT pelvis: SOLID ORGANS/REPRODUCTIVE: Unremarkable. BLADDER: Within normal limits. OSSEOUS STRUCTURES: No acute osseous abnormality.No suspicious lesions. OVERLYING SOFT TISSUES: Within the soft tissues there is minimal stranding noted but no discrete subcutaneous air or loculated fluid collection to suggest abscess. There is no gross rectus sheath hematoma noted of the abdominal wall. Diagnosis: wound dehiscence, urinary tract infection Consults: OBGYN (outpatient), Dr. Bazzi Patient Education/Shared MDM: Results of lab work and imaging shared with patient. she endorses improvement of symptoms following medication administration. Patient strongly advised to maintain hydration status upon discharge and follow-up with her OBGYN for further evaluation. She will not be discharged home with any new prescriptions, as she was prescribed Keflex by her OBGYN yesterday. Patient reports she just received a phone call that her pharmacy has her antibiotic prescription ready at this time. Strict return precautions provided. Patient verbalized understanding and is in agreement with plan. Vital signs stable at time of discharge. All questions answered. Differential Diagnosis Differential Diagnosis: Abdominal abscess, urinary tract infection, wound dehiscence, incision infection Lab Data MDM Lab Attestation statement: I personally reviewed the patient's lab results. 10/26/25 15:53 10/26/25 15:53 Labs: Lab Results 10/26/25 10/26/25 Range/Units 15:42 15:53 WBC 6.8 (4.5-10.0) K/mm3 RBC 4.00 L (4.2-5.4) M/mm3 Hgb 11.5 L (12.0-15.0) g/dL Hct 35.6 L (37.0-47.0) % MCV 89.0 (80-100) fl MCH 28.8 (26-34) pg MCHC 32.3 (32-36) g/dl RDW 13.2 (11.5-14.5) % Plt Count 237 (150-375) k/mm3 MPV 9.1 (7.4-10.4) fl Immature Gran % (Auto) 0.3 (0-0.5) % Neut % (Auto) 55.4 (45.5-73.1) % Lymph % (Auto) 37.1 (18.3-44.2) % [place] % (Auto) 4.7 (2.6-8.5) % Eos % (Auto) 1.9 (0-4.4) % Baso % (Auto) 0.6 (0.2-1.2) % Lymph # (Auto) 2.52 (0.9-3.2) K/mm3 [place] # (Auto) 0.3 (0.1-0.6) K/mm3 Eos # (Auto) 0.1 (0-0.3) K/mm3 Baso # (Auto) 0.0 (0.0-0.1) K/mm3 Abs Immat Gran (auto) 0.02 (0.00-0.031) K/mm3 Absolute Neuts (auto) 3.8 (1.3-6.7) K/mm3 Absolute Nucleated RBC 0.000 (0.0-0.012) K/mm3 Nucleated RBC % 0.0 (0.0-0.2) % PT 13.5 (11.1-14.7) Seconds INR 1.0 APTT 27.4 (22.3-36.8) Seconds Sodium 137 (137-145) mmol/L Potassium 4.1 (3.4-5.0) mmol/L Chloride 106 (98-107) mmol/L Carbon Dioxide 25 (22-30) mmol/L Anion Gap 6 (4-12) mmol/L BUN 14 D (7-17) mg/dL Creatinine 0.82 (0.7-1.0) mg/dL Estim Creat Clear Calc 104 ml/min Estimated GFR > 60 (59 - ) Glucose 76 (65-110) mg/dL Lactic Acid 0.7 (0.7-2.0) mmol/L Calcium 9.4 (8.4-10.2) mg/dL Total Bilirubin 0.4 (0.2-1.3) mg/dL AST 32 (14-36) U/L ALT 32 (6-35) U/L Alkaline Phosphatase 83 (38-126) U/L C-Reactive Protein 0.5 (<1.0) mg/dL Total Protein 7.9 (6.3-8.2) g/dL Albumin 4.5 (3.5-5.1) g/dL Urine Color Yellow (Yellow) Urine Appearance Cloudy H (Clear) Urine pH 5.0 (5.0-9.0) Ur Specific Coin 1.020 (1.001-1.035) Urine Protein Negative (Negative) mg/dL Urine Glucose (UA) Negative (Negative) mg/dL Urine Ketones Negative (Negative) mg/dL Ur Blood (Man) Negative (Negative) Urine Nitrate Negative (Negative) Urine Bilirubin Negative (Negative) Urine Urobilinogen 0.2 (<2.0) mg/dL Leukocyte Esterase Rfl 2+ H (Negative) ZACH/UL Urine RBC 0-2 (0-2) /hpf Urine WBC 11-20 H (0-3) /hpf Ur Squamous Epith Cells Few (Few) /hpf Urine Bacteria Rare /hpf Urine Casts 0-2 Imaging Data Attestation: I personally reviewed and interpreted this imaging study as follows: Radiologist's impression: ITS Impressions Abdomen/Pelvis CT 10/26/25 16:41 IMPRESSION: 1. No etiology identified to explain the patient's symptoms. Follow-up suggested if symptoms persist. Discharge Plan Discharge Clinical Impression: Abdominal wound dehiscence, Urinary tract infection, Delivery by section Patient Disposition: Home Condition: Stable Instructions: Antibiotic Form, Urinary Tract Infection in Women (ED), Wound Dehiscence (ED) Additional Instructions: Please return to the ER with any worsening symptoms. Follow-up with your OBGYN in the next 2-3 days to ensure you are healing. Take all medications as prescribed, including regularly scheduled medications. Please complete your full dose of antibiotics. You may use Tylenol and/or Ibuprofen as needed for pain control. Remember to drink lots of water. Patient Language: Setswana Prescriptions: No Action citalopram 20 mg tablet 20 mg PO DAILY levothyroxine [Synthroid] 150 mcg tablet 150 mcg PO DAILY DHA 200 mg capsule PO polysaccharide iron complex 150 mg iron Capsule 150 mg PO BIDWM Qty: 30 0RF ibuprofen 600 mg Tablet 600 mg PO Q6HR Qty: 30 0RF oxycodone-acetaminophen 5-325 mg tablet 1 - 2 tablet PO Q6H PRN (Reason: pain) Qty: 20 0RF cephalexin 500 mg capsule 500 mg PO Q12H 10 Days Qty: 20 0RF Follow-up/Referrals: Adolph Bazzi MD [Physician, STEWARD DISHWASHER] Johnson,Noe James MD [Primary Care Provider] Time of Disposition: 19:17
[2025-10-26 15:54] LABS: Add Urine Microscopic? YES; Appearance Urine Cloudy (Clear); Glucose Urine UA Negative (Negative); Leukocyte Esterase Ur 2+ LEU/UL (Negative); Nitrate Urine Negative (Negative); Non Pathogenic Casts 0-2; Specific Grav Ur 1.020 (1.001-1.035)
[2025-10-26] MEDS: SODIUM CHLORIDE 0.9% IV 1,000 ML 999 ML IV CONT ×2 (15:58→17:10)
[2025-10-26 15:59] LABS: Hematocrit 35.6 % (37.0-47.0); Hemoglobin 11.5 g/dL (12.0-15.0); Immature Granulocyte Percent A 0.3 % (0-0.5); Lymphocytes Absolute Auto 2.52 K/mm3 (0.9-3.2); Mean Corpuscular HGB Conc 32.3 g/dl (32-36); Mean Corpuscular Hemoglobin 28.8 pg (26-34); Mean Corpuscular Volume 89.0 fl (80-100); Nucleated Red Blood Cells Absolute Auto 0.000 K/mm3 (0.0-0.012); Nucleated Red Blood Cells Perc 0.0 % (0.0-0.2); Platelet Count Result 237 k/mm3 (150-375); Red Blood Count 4.00 M/mm3 (4.2-5.4); White Blood Count 6.8 K/mm3 (4.5-10.0)
[2025-10-26] MEDS: ceFAZolin 1 GM in SODIUM CHLORIDE 0.9% IV 50 ML 100 ML IVPB (16:01)
[2025-10-26] MEDS: oxyCODONE/ACETAMINOPHEN (*CRX) 5-325 MG TABLET 1 TABLET PO (16:02)
[2025-10-26 16:11] LABS: INR 1.0; Prothrombin Time 13.5 Seconds (11.1-14.7)
[2025-10-26 16:12] LABS: Partial Thromboplastin Time 27.4 Seconds (22.3-36.8)
[2025-10-26 16:13] LABS: Alanine Aminotransferase 32 U/L (6-35); Albumin Level 4.5 g/dL (3.5-5.1); Alkaline Phosphatase 83 U/L (38-126); Anion Gap 6 mmol/L (4-12); Aspartate Amino Transferase 32 U/L (14-36); Bilirubin,Total 0.4 mg/dL (0.2-1.3); Blood Urea Nitrogen 14 mg/dL (7-17); CRP 0.5 mg/dL (<1.0); Calcium 9.4 mg/dL (8.4-10.2); Carbon Dioxide 25 mmol/L (22-30); Chloride 106 mmol/L (98-107); Estimated CRCL calculation 104 ml/min; Estimated Glomerular Filt Rate > 60; Glucose 76 mg/dL (65-110); Potassium 4.1 mmol/L (3.4-5.0); Sodium 137 mmol/L (137-145); Total Protein 7.9 g/dL (6.3-8.2)
[2025-10-26] MEDS: SODIUM CHLORIDE 0.9% IV 800 ML IV CONT (17:11)
== END 2025-10-26 19:36 | disposition home or self-care (01) ==
PROVIDERS: Emergency Provider Registered Nurse; PCP Internal Medicine
DX: O90.0 Disruption of cesarean delivery wound (principal); O86.20 Urinary tract infection following delivery, unspecified; N39.0 Urinary tract infection, site not specified; O99.285 Endocrine, nutritional and metabolic diseases complicating the puerperium; E07.9 Disorder of thyroid, unspecified; O99.63 Diseases of the digestive system complicating the puerperium; K21.9 Gastro-esophageal reflux disease without esophagitis; K21.00 Gastro-esophageal reflux disease with esophagitis, without bleeding; K58.0 Irritable bowel syndrome with diarrhea; O99.345 Other mental disorders complicating the puerperium; F41.9 Anxiety disorder, unspecified; F32.A Depression, unspecified; Z79.899 Other long term (current) drug therapy
CPT/HCPCS: 36415; 74177; 80053; 81001; 83605; 85025; 85610; 85730; 86140; 87086; 96365; 99284; A9270; J0690; J7030; Q9967